=== PATIENT | female | born 1960 | race Caucasian/White ===

== ENCOUNTER → 2019-04-15 11:47 | Outpatient (CLI) | payer OTHER, SELFPAY ==
--- NOTE | 2019-04-15 11:50 | DI.MG.S_ITS ---
BILATERAL DIGITAL SCREENING MAMMOGRAM 3D/2D WITH CAD: 04/15/2019 CLINICAL: Routine screening. Family history of breast cancer. Comparison is made to exams dated: 08/22/2011 mammogram, 07/21/2008 mammogram, 07/11/2008 mammogram, and 03/18/2007 mammogram - [facility]. There are scattered fibroglandular elements in both breasts. Current study was also evaluated with a Computer Aided Detection (CAD) system. No significant masses, calcifications, or other findings are seen in either breast. There has been no significant interval change. IMPRESSION: NEGATIVE There is no mammographic evidence of malignancy. A 1 year screening mammogram is recommended. This exam was interpreted at Station ID: [id number]. NOTE: For mammograms, a report in lay terms will be sent to the patient. Approximately 15% of breast malignancies will not be visualized mammographically. In the management of a palpable breast mass, a negative mammogram must not discourage biopsy of a clinically suspicious lesion. Electronically Signed By: Korey ruiz/didier:04/15/2019 12:54:26 letter sent: Normal Exam ACR BI-RADS Category 1: Negative 3341F
[2019-04-15 12:28] LABS: Hemoglobin A1C% w Est Avg Glu 8.8 % (4.0-6.0)
[2019-04-15 12:38] LABS: BUN Creatinine Ratio 22.5 (6-22); Blood Urea Nitrogen 18 mg/dL (7-17); Calcium 9.6 mg/dL (8.4-10.2); Carbon Dioxide 27 mmol/L (22-32); Chloride 110 mmol/L (98-107); Estimated Glomerular Filt Rate > 60.0 mL/min (>60); Glucose 114 mg/dL (70-100); HEMOLYSIS < 15 (0-50); Potassium 4.8 mmol/L (3.4-5.1); Sodium 144 mmol/L (137-145)
--- NOTE | 2019-04-15 15:10 | DI.RAD.S_ITS ---
PROCEDURE: XR TOE RT MIN 2V INDICATIONS: r/o osteo TECHNIQUE: 3 views of the first toe(s) acquired. COMPARISON: None. FINDINGS: Bones: No fractures or dislocations. No suspicious bony lesions. Soft tissues: No suspicious soft tissue densities. IMPRESSION: No ostial lysis is seen, no trauma is found. Depending on the clinical status followup by contrast enhanced MR scanning may be warranted for more accurate assessment. Dictated by: Jeffrey Cleveland M.D. on 04/15/2019 at 16:09 Approved by: Jeffrey Cleveland M.D. on 04/15/2019 at 16:10
== END ==
PROVIDERS: PCP Nurse Practitioner; Visit Provider Nurse Practitioner
DX: Z12.31 Encounter for screening mammogram for malignant neoplasm of breast (principal); Z80.3 Family history of malignant neoplasm of breast; E10.621 Type 1 diabetes mellitus with foot ulcer; L97.509 Non-pressure chronic ulcer of other part of unspecified foot with unspecified severity; I10 Essential (primary) hypertension; G62.2 Polyneuropathy due to other toxic agents; E66.9 Obesity, unspecified
CPT/HCPCS: 36415; 73660; 77063; 77067; 80048; 83036; 84443; 87070; 87077; 87147; 87186; 87205

== ENCOUNTER → 2019-04-15 15:15 | Outpatient (CLI) | payer OTHER, SELFPAY | PROVIDERS: PCP Nurse Practitioner; Visit Provider Nurse Practitioner | DX: E10.621 Type 1 diabetes mellitus with foot ulcer (principal); L97.509 Non-pressure chronic ulcer of other part of unspecified foot with unspecified severity | CPT/HCPCS: 87070; 87075; 87077; 87147; 87186; 87205 ==

== ENCOUNTER → 2021-08-30 11:16 | Outpatient (CLI) | payer OTHER, MEDICAID, SELFPAY ==
[2021-08-30 12:16] LABS: Add Manual Diff / Slide Review NO; Basophils Absolute Auto 0 /uL (0-100); Basophils Percent Auto 0.1 % (0-2); Eosinophils Absolute Auto 200 /uL (0-450); Eosinophils Percent Auto 1.3 % (2-4); Hematocrit 30.6 % (36-46); Hemoglobin 10.2 g/dL (12.0-16.0); Lymphocytes Absolute Auto 4500 /uL (1100-4500); Lymphocytes Percent Auto 28.6 % (25-40); Mean Corpuscular HGB Conc 33.2 % (30-36); Mean Corpuscular Hemoglobin 30.2 PG (26-34); Mean Corpuscular Volume 90.8 fL (80-100); Monocytes Absolute Auto 1000 /uL (0-900); Monocytes Percent Auto 6.2 % (3-14); Neutrophils Absolute Auto 9900 /uL (1500-7000); Neutrophils Percent Auto 63.8 % (50-75); Platelet Count 687 X10^3/uL (150-400); Red Blood Cell Count 3.37 X10^6/uL (4.0-5.2); Red Cell Distribution Width 15.5 % (11.6-14.8); White Blood Cell Count 15.6 X10^3/uL (4.5-11.0)
[2021-08-30 12:26] LABS: Alanine Aminotransferase 19 IU/L (<35); Alkaline Phosphatase 106 U/L (38-126); Aspartate Aminotransferase 18 IU/L (14-36); BUN Creatinine Ratio 25.3 (6-22); Bilirubin Total 0.3 mg/dL (0.2-1.3); Blood Urea Nitrogen 19 mg/dL (7-17); Calcium 8.8 mg/dL (8.4-10.2); Carbon Dioxide 33 mmol/L (22-32); Chloride 104 mmol/L (98-107); Cholesterol 217 mg/dL (140-199); Estimated Glomerular Filt Rate > 60.0 mL/min (>60); Globulin 2.9 g/dL (1.7-4.1); Glucose 147 mg/dL (80-110); HDL Cholesterol 69 mg/dL (40-60); HEMOLYSIS < 15 (0-50); LDL Cholesterol Calculated 120 mg/dL (<100); Magnesium 1.7 mg/dL (1.6-2.3); Potassium 4.2 mmol/L (3.4-5.1); Sodium 141 mmol/L (137-145); Total Protein 5.9 g/dL (6.3-8.2); Triglycerides 141 mg/dL (35-150)
[2021-08-30 12:43] LABS: Free T3, Triiodothyronine Free 2.97 pg/mL (2.77-5.27); Free T4, Direct Thyroxine 1.14 ng/dL (0.78-2.19)
[2021-08-30 12:56] LABS: Thyroid Stimulating Hormone 4.09 uIU/mL (0.47-4.68)
[2021-08-30 14:37] LABS: Creatinine Urine Random 126.1 mg/dL
[2021-08-30 14:42] LABS: Microalbumi Creatinin Ratio Ur 28.5 ug/mg CR (<30); Microalbumin Urine Random 3.6 mg/dL (0-1.6)
== END ==
PROVIDERS: PCP Nurse Practitioner; Referring Provider Nurse Practitioner; Visit Provider Nurse Practitioner
DX: E78.2 Mixed hyperlipidemia (principal); E10.621 Type 1 diabetes mellitus with foot ulcer; L97.509 Non-pressure chronic ulcer of other part of unspecified foot with unspecified severity; I10 Essential (primary) hypertension; E10.8 Type 1 diabetes mellitus with unspecified complications; F33.41 Major depressive disorder, recurrent, in partial remission; E83.42 Hypomagnesemia; D64.9 Anemia, unspecified
CPT/HCPCS: 36415; 80053; 80061; 82043; 82570; 83036; 83735; 84439; 84443; 84481; 85025

== ENCOUNTER 2024-01-04 11:51 | Emergency (ER) | payer OTHER, MEDICAID, SELFPAY ==
[2024-01-04] VITALS (52 sets, daily range): BP systolic 77–120; BP diastolic 35–49; PULSE 80–200; RESP 15–32; TEMP 33.8–36.9; O2SAT 94–100
[2024-01-04] MEDS: SODIUM CHLORIDE 0.9% 1,000 ML 1000 ML IV ×4 (11:50→14:08)
--- NOTE | 2024-01-04 11:56 | DI.RAD.S_ITS ---
PROCEDURE: XR CHEST 1V INDICATIONS: suspected sepsis TECHNIQUE: One view of the chest was acquired. COMPARISON: None. FINDINGS: Surgical changes and devices: ETT is approximately 2 cm above the toñito. NG tube tip is in the proximal gastric lumen/GE junction below the left hemidiaphragm and can be advanced by 5-10 cm. Left internal jugular central venous catheter tip is in SVC. Lungs and pleura: Mild pulmonary vascular congestion is seen. Subtle patchy airspace opacity is seen in right upper lung field and bilateral perihilar region. No pleural effusions or pneumothorax. Mediastinum: Mediastinal contours appear normal. Heart size is normal. Bones and chest wall: No suspicious bony lesions. Overlying soft tissues appear unremarkable. IMPRESSION: Finding may represent patchy infiltrates versus atelectasis in right upper lobe and bilateral perihilar region. No pleural effusion or pneumothorax. Tube and line positions as above. Dictated by: Paul Telles M.D. on 01/04/2024 at 12:28 Approved by: Paul Telles M.D. on 01/04/2024 at 12:30
[2024-01-04] MEDS: NOREPINEPHRINE BITARTRATE/D5W 4 MG/250 ML PLAST..BAG 25.5 MG IV (11:59)
[2024-01-04] MEDS: ETOMIDATE 2 MG/ML 10 ML VIAL 10 MG IV (12:08)
[2024-01-04] MEDS: ROCURONIUM 50 MG/5 ML INJ 100 MG IV (12:09)
--- NOTE | 2024-01-04 12:14 | ED.GENADULT ---
HPI - General Adult General Chief complaint: Altered Mental Status Stated complaint: Hyperglycemia, hypotension, sick couple days Time Seen by Provider: 01/04/24 11:51 Source: EMS Mode of arrival: EMS History of Present Illness HPI narrative: 63-year-old woman brought in by medics from home. Apparently lives in a home with other friends who knew very little about her. She was minimally responsive, mottled, significantly hypotensive, shallow ineffective breathing. No additional information was available initially. Only IV access was an IO On arrival in the emergency department she was taken to room 2. Fluids through the IO as well as Levophed were continued. Central line was placed in the left internal jugular, right looks like it has had multiple other access points and was not easily visible. Once central line was in additional fluid resuscitation as well as Levophed for pressure control was initiated. Rapid sequence intubation was done with uncomplicated intubation. Patient will be placed on fentanyl drip for sedation as needed. Uncertain etiology for the entire event. Differential is vast. We will begin workup with continued fluid resuscitation, antibiotics and pressors. With her intubation she did have some blood flex coming from her esophagus did not look like active bleeding but clearly concern for bleeding at 1 point during the course of her events that led to this rather dramatic presentation Related Data Home Medications Medication Instructions Recorded Confirmed [INSULIN PUMP] ##0 04/22/13 08/29/21 Bacillus coagulans 10 billion cell cell PO 11/11/18 08/29/21 capsule,delayed release (Probiotic (B. coagulans)) ferrous sulfate 27 mg iron tablet 27 mg PO DAILY 10/31/20 08/29/21 Previous Rx's Medication Instructions Recorded insulin lispro 100 unit/mL See Rx Instructions continuous 04/27/20 subcutaneous solution (Humalog subcutaneous infusion SEE U-100 Insulin) INSTRUCTIONS #90 days duloxetine 30 mg capsule,delayed 30 mg PO BID #180 caps 08/29/21 release (Cymbalta) ferrous sulfate 325 mg (65 mg 325 mg PO DAILY #90 tabs 08/29/21 iron) tablet (Iron (ferrous sulfate)) lisinopril 10 mg tablet 5 mg (1/2 x 10 mg) PO Q DAY #90 08/29/21 tabs omeprazole magnesium 20 mg 20 mg PO BID Acid indigestion #180 08/29/21 tablet,delayed release (Prilosec caps OTC) rosuvastatin 40 mg tablet (Crestor) 40 mg PO DAILY #90 tabs 08/29/21 gabapentin 100 mg capsule See Rx Instructions PO .COMPLEX 09/03/22 #360 caps Allergies Allergy/AdvReac Type Severity Reaction Status Date / Time No Known Drug Allergies Allergy Verified 01/04/24 12:15 Review of Systems Review of Systems ROS Unobtainable: Unobtainable due to medical condition Patient History Medical History Coronary artery disease Hypomagnesemia Tobacco abuse Hyperlipidemia Type 1 diabetes mellitus Non-healing wound Toe amputation status Surgical History History of cataract removal with insertion of prosthetic lens (~2003) History of cataract removal with insertion of prosthetic lens (~1993) History of third molar tooth extraction History of tonsillectomy 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) Family History Brother Age: 69 Alcoholism Father Alcohol abuse Grandfather Alcoholism Heart attack Family/Other Breast cancer Mother Multiple sclerosis Family/Other Heroin abuse Family/Other Heroin abuse Social History Smoking Status: Unknown if ever smoked Smoking Status: Unknown if ever smoked Exam Initial Vital Signs Initial Vital Signs: Vital Signs Temperature 96.9 F L 01/04/24 11:52 Pulse Rate 80 01/04/24 11:52 Respiratory Rate 32 H 01/04/24 11:52 Blood Pressure 77/35 L 01/04/24 11:52 Pulse Oximetry 99 01/04/24 11:52 Oxygen Delivery Method Room Air 01/04/24 11:52 General: Obtunded, mottled, tachypneic HEENT: Dramatically dry mucous membranes, mildly injected sclera with reactive pupils, Neck: No JVD, ultrasound of internal jugular shows significant intravascular dehydration Respiratory: Lungs are clear to auscultation, no wheezing no rales no rhonchi. Ineffective ventilate powers attempts at breathing. Patient is to mottled for realistic oxygen saturation reading Cardiac: Regular rate Abdomen: Soft, no pain behaviors or flinching with deep palpation of her abdomen Skin: Mottled throughout, very cold fingers and toes, no obvious infection or cellulitis appreciated Neurologic: Nonpurposeful movement of all extremities, she did open her eyes once but did not respond to any questioning Extremities: No trauma, poor overall perfusion Psych: Obtunded Procedures Central Line Placement Left IJ: Time of procedure: 12:00 Time Out Performed: Yes Patient Placed on Monitor/Pulse Ox: Yes MD Prep: mask, gown and gloves Central Line Prep: Chlorhexidine scrub and sterile drapes applied Ultrasound Used for Placement: Yes Central Line Lumen Inserted: triple Post Procedure: sutured in place, good blood return, all ports aspirated, flushed, capped and sterile dressing applied Post Procedure X-Ray: tip of catheter in good position (Catheter is in the distal superior IVC) and no pneumothorax seen Additional Comments: Right internal jugular is scarred. Left was more accessible. Intubation Time of Intubation: 12:00 Time out performed: Yes sedative: Etomidate Mg Given: 10 paralytic: Rocuronium Mg Given: 100 Laryngoscope: fiber optic video scope ET Tube Size: 7.5 Tube Secured Depth (cm): 22 Tube Secured Location: teeth Tube Placement Confirmation: Visualized tube passing through cords, Equal breath sounds bilaterally, No breath sounds over epigastrium, Confirmation by capnometry and Chest Xray Patient Tolerated Procedure: Well Course Orders Ordered: ED Orders 01/04/24 11:55 Complete Blood Count AUTO DIFF Stat Comprehensive Metabolic Panel Stat Lactate (Lactic Acid) Stat Lipase Stat PTT Partial Thromboplastin Yasir Stat Procalcitonin Stat Prothrombin Time INR Stat 01/04/24 11:56 XR chest 1V Stat EKG-12 Lead Stat RT Consult Eval and Treat NOW 01/04/24 12:15 Blood Culture Stat 01/04/24 12:40 Arterial Blood Gas Daily 01/04/24 12:47 Ventilator Order 01/04/24 13:25 Trop I [Troponin I] Stat Type and Screen Stat 01/04/24 13:27 Urinalysis and Microscopic Stat 01/04/24 13:55 ABG [Arterial Blood Gas] Stat CMP [Comprehensive Metabolic Panel] Stat Hemoglobin and Hematocrit Stat 01/04/24 14:20 ABG [Arterial Blood Gas] Stat 01/04/24 14:51 XR chest 1V Stat 01/04/24 16:09 Comprehensive Metabolic Panel Stat 01/05/24 13:00 Arterial Blood Gas Daily 01/06/24 13:00 Arterial Blood Gas Daily 01/07/24 13:00 Arterial Blood Gas Daily 01/08/24 13:00 Arterial Blood Gas Daily 01/09/24 13:00 Arterial Blood Gas Daily 01/10/24 13:00 Arterial Blood Gas Daily 01/11/24 13:00 Arterial Blood Gas Daily 01/12/24 13:00 Arterial Blood Gas Daily 01/13/24 13:00 Arterial Blood Gas Daily 01/14/24 13:00 Arterial Blood Gas Daily 01/15/24 13:00 Arterial Blood Gas Daily 01/16/24 13:00 Arterial Blood Gas Daily 01/17/24 13:00 Arterial Blood Gas Daily Chlorhexidine Gluconate (Chlorhexidine Gluconate 15 Ml Cup) 15 ml PO Q6HR ELVIS NOREPINEPHRINE BITARTRATE/D5W (Levophed) 4 mg in 250 mls @ 25.5 mls/hr IV TITRATE ELVIS; Protocol Last Admin: 01/04/24 15:23 Dose: 0.3 mcg/kg/min, 76.5 mls/hr Documented By: Titration: 01/04/24 15:23 Dose: Infused Documented By: Titration: 01/04/24 13:03 Dose: 0.3 mcg/kg/min, 76.5 mls/hr Documented By: Titration: 01/04/24 12:10 Dose: 0.2 mcg/kg/min, 51 mls/hr Documented By: Admin: 01/04/24 11:59 Dose: 0.1 mcg/kg/min, 25.5 mls/hr Documented By: DARRIN Fentanyl 1,000 mcg/ Dextrose 250 mls @ 11.9 mls/hr IV TITRATE ELVIS; Protocol Last Admin: 01/04/24 13:05 Dose: 0.7 mcg/kg/hr, 11.9 mls/hr Documented By: DARRIN Sodium Chloride (Normal Saline 0.9%) 1,000 mls @ 130 mls/hr IV CONT ELVIS Last Admin: 01/04/24 15:19 Dose: Not Given Documented By: BARRY INSULIN DRIP PREMIX (Myxredlin Drip Premix) 100 unit in 100 mls @ 6.8 mls/hr IV TITRATE ELVIS; Protocol Last Admin: 01/04/24 14:56 Dose: 0.1 unit/kg/hr, 6.8 mls/hr Documented By: BARRY Co-signed By: TALIA Sodium Chloride (Normal Saline 0.9%) 1,000 mls @ 250 mls/hr IV CONT ELVIS Last Admin: 01/04/24 15:24 Dose: 250 mls/hr Documented By: BARRY Ondansetron HCl (Ondansetron 4 Mg/2 Ml Inj) 4 mg IV NOW PRN PRN Reason: Nausea And Vomiting Ondansetron HCl (Ondansetron 4 Mg Odt) 4 mg SL NOW PRN PRN Reason: Nausea And Vomiting Discontinued Medications Etomidate (Etomidate 2 Mg/Ml 10 Ml Vial) 10 mg IV NOW ONE Stop: 01/04/24 12:12 Last Admin: 01/04/24 12:08 Dose: 10 mg Documented By: DARRIN Sodium Chloride (Normal Saline 0.9%) 1,000 mls @ 1,000 mls/hr IV BOLUS ONE Stop: 01/04/24 12:55 Last Infusion: 01/04/24 12:20 Dose: Infused Documented By: Admin: 01/04/24 12:00 Dose: 1,000 mls/hr Documented By: DARRIN NOREPINEPHRINE BITARTRATE/D5W (Levophed) 4 mg in 250 mls @ 61.875 mls/hr IV TITRATE ELVIS; Protocol Last Admin: 01/04/24 13:18 Dose: Not Given Documented By: DARRIN Fentanyl 1,000 mcg/ Dextrose 250 mls @ 28.875 mls/hr IV TITRATE ELVIS; Protocol Last Admin: 01/04/24 13:18 Dose: Not Given Documented By: DARRIN Sodium Chloride (Normal Saline 0.9%) 1,000 mls @ 1,000 mls/hr IV BOLUS ONE Stop: 01/04/24 13:22 Last Infusion: 01/04/24 13:17 Dose: Infused Documented By: Infusion: 01/04/24 12:05 Dose: 0 mls/hr Documented By: Admin: 01/04/24 11:50 Dose: 1,000 mls/hr Documented By: DARRIN Calcium Gluconate 4.65 meq/ (Sodium Chloride) 60 mls @ 180 mls/hr IV NOW ONE Stop: 01/04/24 13:04 Last Infusion: 01/04/24 13:17 Dose: Infused Documented By: Admin: 01/04/24 12:47 Dose: 180 mls/hr Documented By: DARRIN Cefepime HCl 2 gm/ Sodium (Chloride) 100 mls @ 200 mls/hr IV NOW ONE Stop: 01/04/24 12:58 Last Infusion: 01/04/24 14:08 Dose: Infused Documented By: Admin: 01/04/24 12:45 Dose: 200 mls/hr Documented By: DARRIN Sodium Chloride (Normal Saline 0.9%) 1,000 mls @ 1,000 mls/hr IV BOLUS ONE Stop: 01/04/24 14:17 Last Infusion: 01/04/24 15:01 Dose: Infused Documented By: Admin: 01/04/24 14:08 Dose: 1,000 mls/hr Documented By: BARRY Sodium Chloride (Normal Saline 0.9%) 1,000 mls @ 1,000 mls/hr IV BOLUS ONE Stop: 01/04/24 13:44 Last Infusion: 01/04/24 13:45 Dose: Infused Documented By: Admin: 01/04/24 12:45 Dose: 1,000 mls/hr Documented By: BARRY Insulin Human Regular (Insulin Regular 100 Unit/Ml 3 Ml Vial) 10 unit IV NOW ONE Stop: 01/04/24 12:32 Last Admin: 01/04/24 12:49 Dose: 10 unit Documented By: DARRIN Co-signed By: BARRY Rocuronium [place] (Rocuronium 50 Mg/5 Ml Inj) 100 mg IV NOW ONE Stop: 01/04/24 12:12 Last Admin: 01/04/24 12:09 Dose: 100 mg Documented By: DARRIN Sodium Bicarbonate (Sodium Bicarb 8.4% Syringe) 100 meq IV NOW ONE Stop: 01/04/24 12:46 Last Admin: 01/04/24 12:42 Dose: 100 meq Documented By: DARRIN Vital Signs Vital signs: Vital Signs - 8 hr 01/04/24 11:52 01/04/24 12:07 01/04/24 12:07 Temperature 96.9 F L Pulse Rate 80 87 Respiratory Rate 32 H 25 H Blood Pressure 77/35 L 102/40 L Pulse Oximetry 99 95 Oxygen Delivery Method Room Air Room Air 01/04/24 12:08 01/04/24 12:08 01/04/24 12:09 Temperature Pulse Rate 89 Respiratory Rate 27 H Blood Pressure 105/47 L 103/44 L Pulse Oximetry 98 Oxygen Delivery Method Room Air 01/04/24 12:09 01/04/24 12:10 01/04/24 12:10 Temperature Pulse Rate 90 92 H Respiratory Rate 16 18 Blood Pressure 95/41 L Pulse Oximetry 100 100 Oxygen Delivery Method Ambu Bag Ambu Bag 01/04/24 12:11 01/04/24 12:11 01/04/24 12:12 Temperature Pulse Rate 95 H Respiratory Rate 18 Blood Pressure 97/46 L 101/46 L Pulse Oximetry 100 Oxygen Delivery Method Mechanical Ventilation 01/04/24 12:12 01/04/24 12:13 01/04/24 12:13 Temperature Pulse Rate 94 H 99 H Respiratory Rate 18 18 Blood Pressure 100/46 L Pulse Oximetry 100 100 Oxygen Delivery Method Mechanical Ventilation Mechanical Ventilation 01/04/24 12:14 01/04/24 12:14 01/04/24 12:15 Temperature Pulse Rate 86 Respiratory Rate 18 Blood Pressure 104/46 L 107/47 L Pulse Oximetry 100 Oxygen Delivery Method Mechanical Ventilation 01/04/24 12:15 01/04/24 12:16 01/04/24 12:16 Temperature Pulse Rate 92 H 90 Respiratory Rate 18 18 Blood Pressure 106/48 L Pulse Oximetry 100 100 Oxygen Delivery Method Mechanical Ventilation Mechanical Ventilation 01/04/24 12:17 01/04/24 12:17 01/04/24 12:18 Temperature Pulse Rate 98 H Respiratory Rate 18 Blood Pressure 101/49 L 120/49 L Pulse Oximetry 100 Oxygen Delivery Method Mechanical Ventilation 01/04/24 12:18 01/04/24 12:19 01/04/24 12:19 Temperature Pulse Rate 200 H 99 H Respiratory Rate 22 18 Blood Pressure 104/46 L Pulse Oximetry 100 100 Oxygen Delivery Method Mechanical Ventilation Mechanical Ventilation 01/04/24 12:20 01/04/24 12:20 01/04/24 12:21 Temperature Pulse Rate 98 H Respiratory Rate 18 Blood Pressure 101/46 L 107/45 L Pulse Oximetry 100 Oxygen Delivery Method Mechanical Ventilation 01/04/24 12:21 01/04/24 12:22 01/04/24 12:22 Temperature Pulse Rate 89 87 Respiratory Rate 18 18 Blood Pressure 105/45 L Pulse Oximetry 100 100 Oxygen Delivery Method Mechanical Ventilation Mechanical Ventilation 01/04/24 12:23 01/04/24 12:23 01/04/24 12:24 Temperature Pulse Rate 99 H Respiratory Rate 18 Blood Pressure 104/48 L 104/48 L Pulse Oximetry 100 Oxygen Delivery Method Mechanical Ventilation 01/04/24 12:24 01/04/24 12:25 01/04/24 12:25 Temperature Pulse Rate 99 H 99 H Respiratory Rate 18 18 Blood Pressure 103/49 L Pulse Oximetry 100 100 Oxygen Delivery Method Mechanical Ventilation Mechanical Ventilation 01/04/24 12:26 01/04/24 12:26 01/04/24 12:27 Temperature Pulse Rate 98 H Respiratory Rate 18 Blood Pressure 113/48 L 112/47 L Pulse Oximetry 100 Oxygen Delivery Method Mechanical Ventilation 01/04/24 12:27 01/04/24 12:28 01/04/24 12:28 Temperature Pulse Rate 95 H 89 Respiratory Rate 18 19 Blood Pressure 106/47 L Pulse Oximetry 100 100 Oxygen Delivery Method Mechanical Ventilation Mechanical Ventilation 01/04/24 12:29 01/04/24 12:29 01/04/24 12:30 Temperature Pulse Rate 91 H Respiratory Rate 18 Blood Pressure 105/47 L 104/48 L Pulse Oximetry 100 Oxygen Delivery Method Mechanical Ventilation 01/04/24 12:30 01/04/24 12:31 01/04/24 12:31 Temperature Pulse Rate 85 87 Respiratory Rate 18 18 Blood Pressure 118/48 L Pulse Oximetry 100 100 Oxygen Delivery Method Mechanical Ventilation Mechanical Ventilation 01/04/24 12:32 01/04/24 12:32 01/04/24 12:33 Temperature Pulse Rate 110 H Respiratory Rate 18 Blood Pressure 115/49 L 113/49 L Pulse Oximetry 100 Oxygen Delivery Method Mechanical Ventilation 01/04/24 12:33 01/04/24 12:34 01/04/24 12:34 Temperature 92.8 F L Pulse Rate 95 H 194 H Respiratory Rate 18 19 Blood Pressure 104/46 L Pulse Oximetry 100 100 Oxygen Delivery Method Mechanical Ventilation Mechanical Ventilation 01/04/24 12:35 01/04/24 12:35 01/04/24 12:36 Temperature 93.0 F L Pulse Rate 97 H Respiratory Rate 19 Blood Pressure 102/47 L 110/46 L Pulse Oximetry 100 Oxygen Delivery Method Mechanical Ventilation 01/04/24 12:36 01/04/24 12:37 01/04/24 12:37 Temperature 93.0 F L 93.0 F L Pulse Rate 97 H 97 H Respiratory Rate 15 18 Blood Pressure 105/47 L Pulse Oximetry 100 100 Oxygen Delivery Method Mechanical Ventilation Mechanical Ventilation 01/04/24 12:38 01/04/24 12:38 01/04/24 12:39 Temperature 93.0 F L 93.0 F L Pulse Rate 97 H 97 H Respiratory Rate 15 18 Blood Pressure 104/47 L Pulse Oximetry 100 100 Oxygen Delivery Method Mechanical Ventilation Mechanical Ventilation 01/04/24 12:39 01/04/24 12:45 01/04/24 12:45 Temperature 93.2 F L Pulse Rate 95 H Respiratory Rate 18 Blood Pressure 106/47 L 102/46 L Pulse Oximetry 100 Oxygen Delivery Method Mechanical Ventilation 01/04/24 13:00 01/04/24 13:00 01/04/24 13:15 Temperature 93.2 F L Pulse Rate 97 H Respiratory Rate 18 Blood Pressure 92/40 L 101/46 L Pulse Oximetry 100 Oxygen Delivery Method Mechanical Ventilation 01/04/24 13:15 01/04/24 13:30 01/04/24 13:30 Temperature 93.4 F L 93.6 F L Pulse Rate 104 H 104 H Respiratory Rate 18 19 Blood Pressure 103/47 L Pulse Oximetry 100 100 Oxygen Delivery Method Mechanical Ventilation Mechanical Ventilation 01/04/24 13:45 01/04/24 13:45 01/04/24 14:00 Temperature 94.1 F L Pulse Rate 104 H Respiratory Rate 18 Blood Pressure 107/49 L 106/49 L Pulse Oximetry 96 Oxygen Delivery Method 01/04/24 14:00 01/04/24 14:15 01/04/24 14:15 Temperature 94.5 F L 94.8 F L Pulse Rate 106 H 108 H Respiratory Rate 18 19 Blood Pressure 105/48 L Pulse Oximetry 96 96 Oxygen Delivery Method 01/04/24 14:30 01/04/24 14:30 01/04/24 14:45 Temperature 95.5 F L Pulse Rate 108 H Respiratory Rate Blood Pressure 111/48 L 110/46 L Pulse Oximetry 96 Oxygen Delivery Method 01/04/24 14:45 01/04/24 15:00 01/04/24 15:00 Temperature 96.1 F L 96.6 F L Pulse Rate 109 H 109 H Respiratory Rate 18 Blood Pressure 102/46 L Pulse Oximetry 96 96 Oxygen Delivery Method 01/04/24 15:15 01/04/24 15:15 01/04/24 15:30 Temperature 97.2 F L Pulse Rate 109 H Respiratory Rate 18 Blood Pressure 108/46 L 100/46 L Pulse Oximetry 95 Oxygen Delivery Method Mechanical Ventilation 01/04/24 15:30 01/04/24 15:45 01/04/24 15:45 Temperature 97.5 F L 97.9 F Pulse Rate 109 H 109 H Respiratory Rate 18 18 Blood Pressure 106/44 L Pulse Oximetry 94 94 Oxygen Delivery Method Mechanical Ventilation 01/04/24 16:00 01/04/24 16:00 01/04/24 16:15 Temperature 98.2 F Pulse Rate 109 H Respiratory Rate 18 Blood Pressure 100/45 L 97/45 L Pulse Oximetry 94 Oxygen Delivery Method 01/04/24 16:15 Temperature 98.4 F Pulse Rate 110 H Respiratory Rate 18 Blood Pressure Pulse Oximetry 94 Oxygen Delivery Method Mechanical Ventilation Medical Decision Making Lab Data 01/04/24 13:55 01/04/24 16:09 Labs: Lab Results 01/04/24 01/04/24 01/04/24 Range/Units 11:55 12:40 13:25 WBC 16.7 H (4.5-11.0) X10^3/uL RBC 2.72 L (4.0-5.2) X10^6/uL Hgb 8.2 L (12.0-16.0) g/dL Hct 32.0 L (36-46) % MCV 117.8 H (80-100) fL MCH 30.3 (26-34) PG MCHC 25.8 L (30-36) % RDW 15.2 H (11.6-14.8) % Plt Count 269 (150-400) X10^3/uL Neut % (Auto) [employer] Lymph % (Auto) [employer] [place] % (Auto) [employer] Operator Eos % (Auto) [employer] Operator Baso % (Auto) [employer] Operator Neut # (Auto) [employer] Operator Lymph # (Auto) [employer] Operator [place] # (Auto) [employer] Operator Eos # (Auto) [employer] Operator Baso # (Auto) [employer] Operator Total Counted 100 Seg Neutrophils % 80.0 H (38-70) % Band Neutrophils % 5.0 (3-7) % Lymphocytes % (Manual) 10.0 L (25-45) % Monocytes % (Manual) 5.0 (2-11) % Neutrophils # (Manual) 80084 H (2786-4253) /uL Nucleated RBCs 1 H ( - 0) #/Diff Platelet Estimate Adequate on smear RBC Morphology See below Poikilocytosis 1+ H Anisocytosis 2+ H Macrocytosis 2+ H PT 11.3 (9.4-12.5) SECONDS INR 1.0 (0.9-1.3) APTT 25 L (25.1-36.5) SECONDS ABG Sample Site Right brachial ABG pH 6.80 L* (7.35-7.45) ABG pCO2 28.5 L (35-45) mmHg ABG pO2 134 H (80-100) mmHg ABG HCO3 4 L (23-27) mmol/L ABG Total CO2 5 L (23-27) mmol/L ABG O2 Saturation 94 L (95-100) % ABG Base Excess < -30.0 L (-2-3) mmol/L FiO2 40 Sodium 133 L (137-145) mmol/L Potassium 7.1 H* (3.4-5.1) mmol/L Chloride 103 (98-107) mmol/L Carbon Dioxide < 5 L* (22-32) mmol/L BUN 41 H (7-17) mg/dL Creatinine 2.49 H (0.52-1.04) mg/dL Estimated GFR 21 L (>60) mL/min BUN/Creatinine Ratio 16.5 (6-22) Glucose > 1250 H* (80-110) mg/dL Lactate 7.3 H* (0.7-2.1) mmol/L Calcium 7.4 L (8.4-10.2) mg/dL Total Bilirubin 0.3 (0.2-1.3) mg/dL AST 21 (14-36) IU/L ALT 20 (<35) IU/L Alkaline Phosphatase 86 (38-126) U/L Troponin I < 0.012 (0.01-0.034) ng/mL Total Protein 5.0 L (6.3-8.2) g/dL Albumin 2.9 L (3.5-5.0) g/dL Globulin 2.1 (1.7-4.1) g/dL Albumin/Globulin Ratio 1.4 (1.0-2.8) Lipase 19 L (23-300) U/L Procalcitonin 14.2 H (<0.5) ng/mL Urine Color Urine Appearance Urine pH (4.5-8.0) Ur Specific [place] (1.000-1.035) Urine Protein (Negative) Urine Glucose (UA) (Negative) g/dL Urine Ketones (NEGATIVE) Urine Occult Blood (Negative) Urine Nitrate (Negative) Urine Bilirubin (NEGATIVE) Urine Urobilinogen (0.2) E.U./dL Ur Leukocyte Esterase (NEGATIVE) Urine RBC (0-5/HPF) Urine WBC (0-5/HPF) Ur Squamous Epith Cells (0-5/HPF) Urine Bacteria (None) Ur Culture Indicated? Vol Urine Centrifuged Blood Type A Negative Antibody Screen Negative 01/04/24 01/04/24 01/04/24 Range/Units 13:27 13:55 14:20 WBC (4.5-11.0) X10^3/uL RBC (4.0-5.2) X10^6/uL Hgb 8.6 L (12.0-16.0) g/dL Hct 30.7 L (36-46) % MCV (80-100) fL MCH (26-34) PG MCHC (30-36) % RDW (11.6-14.8) % Plt Count (150-400) X10^3/uL Neut % (Auto) Lymph % (Auto) [place] % (Auto) Eos % (Auto) Baso % (Auto) Neut # (Auto) Lymph # (Auto) [place] # (Auto) Eos # (Auto) Baso # (Auto) Total Counted Seg Neutrophils % (38-70) % Band Neutrophils % (3-7) % Lymphocytes % (Manual) (25-45) % Monocytes % (Manual) (2-11) % Neutrophils # (Manual) (7014-9103) /uL Nucleated RBCs ( - 0) #/Diff Platelet Estimate RBC Morphology Poikilocytosis Anisocytosis Macrocytosis PT (9.4-12.5) SECONDS INR (0.9-1.3) APTT (25.1-36.5) SECONDS ABG Sample Site Right brachial ABG pH 6.87 L* (7.35-7.45) ABG pCO2 38.3 (35-45) mmHg ABG pO2 92 (80-100) mmHg ABG HCO3 7 L (23-27) mmol/L ABG Total CO2 8 L (23-27) mmol/L ABG O2 Saturation 88 L (95-100) % ABG Base Excess -26.0 L (-2-3) mmol/L FiO2 30 Sodium 138 (137-145) mmol/L Potassium 5.8 H D (3.4-5.1) mmol/L Chloride 108 H (98-107) mmol/L Carbon Dioxide < 5 L* (22-32) mmol/L BUN 40 H (7-17) mg/dL Creatinine 2.28 H (0.52-1.04) mg/dL Estimated GFR 24 L (>60) mL/min BUN/Creatinine Ratio 17.5 (6-22) Glucose 1082 H* (80-110) mg/dL Lactate 7.1 H* (0.7-2.1) mmol/L Calcium 7.3 L (8.4-10.2) mg/dL Total Bilirubin 0.3 (0.2-1.3) mg/dL AST 72 H (14-36) IU/L ALT 37 H (<35) IU/L Alkaline Phosphatase 98 (38-126) U/L Troponin I (0.01-0.034) ng/mL Total Protein 5.2 L (6.3-8.2) g/dL Albumin 3.0 L (3.5-5.0) g/dL Globulin 2.2 (1.7-4.1) g/dL Albumin/Globulin Ratio 1.4 (1.0-2.8) Lipase (23-300) U/L Procalcitonin (<0.5) ng/mL Urine Color Yellow Urine Appearance Sl cloudy Urine pH 5.5 (4.5-8.0) Ur Specific [place] 1.015 (1.000-1.035) Urine Protein Trace H (Negative) Urine Glucose (UA) 3+ H (Negative) g/dL Urine Ketones 1+ H (NEGATIVE) Urine Occult Blood 1+ H (Negative) Urine Nitrate Negative (Negative) Urine Bilirubin Negative (NEGATIVE) Urine Urobilinogen 0.2 (0.2) E.U./dL Ur Leukocyte Esterase Negative (NEGATIVE) Urine RBC 0-1/hpf (0-5/HPF) Urine WBC None seen (0-5/HPF) Ur Squamous Epith Cells None seen (0-5/HPF) Urine Bacteria None seen (None) Ur Culture Indicated? Cult not indicated Vol Urine Centrifuged 10ml (spun) Blood Type Antibody Screen 01/04/24 Range/Units 16:09 WBC (4.5-11.0) X10^3/uL RBC (4.0-5.2) X10^6/uL Hgb (12.0-16.0) g/dL Hct (36-46) % MCV (80-100) fL MCH (26-34) PG MCHC (30-36) % RDW (11.6-14.8) % Plt Count (150-400) X10^3/uL Neut % (Auto) Lymph % (Auto) [place] % (Auto) Eos % (Auto) Baso % (Auto) Neut # (Auto) Lymph # (Auto) [place] # (Auto) Eos # (Auto) Baso # (Auto) Total Counted Seg Neutrophils % (38-70) % Band Neutrophils % (3-7) % Lymphocytes % (Manual) (25-45) % Monocytes % (Manual) (2-11) % Neutrophils # (Manual) (8176-6274) /uL Nucleated RBCs ( - 0) #/Diff Platelet Estimate RBC Morphology Poikilocytosis Anisocytosis Macrocytosis PT (9.4-12.5) SECONDS INR (0.9-1.3) APTT (25.1-36.5) SECONDS ABG Sample Site ABG pH (7.35-7.45) ABG pCO2 (35-45) mmHg ABG pO2 (80-100) mmHg ABG HCO3 (23-27) mmol/L ABG Total CO2 (23-27) mmol/L ABG O2 Saturation (95-100) % ABG Base Excess (-2-3) mmol/L FiO2 Sodium 139 (137-145) mmol/L Potassium 5.3 H (3.4-5.1) mmol/L Chloride 110 H (98-107) mmol/L Carbon Dioxide (22-32) mmol/L BUN 40 H (7-17) mg/dL Creatinine 2.22 H (0.52-1.04) mg/dL Estimated GFR 24 L (>60) mL/min BUN/Creatinine Ratio 18.0 (6-22) Glucose (80-110) mg/dL Lactate (0.7-2.1) mmol/L Calcium 7.3 L (8.4-10.2) mg/dL Total Bilirubin 0.3 (0.2-1.3) mg/dL AST 89 H (14-36) IU/L ALT 39 H (<35) IU/L Alkaline Phosphatase 88 (38-126) U/L Troponin I (0.01-0.034) ng/mL Total Protein 5.4 L (6.3-8.2) g/dL Albumin 3.1 L (3.5-5.0) g/dL Globulin 2.3 (1.7-4.1) g/dL Albumin/Globulin Ratio 1.3 (1.0-2.8) Lipase (23-300) U/L Procalcitonin (<0.5) ng/mL Urine Color Urine Appearance Urine pH (4.5-8.0) Ur Specific [place] (1.000-1.035) Urine Protein (Negative) Urine Glucose (UA) (Negative) g/dL Urine Ketones (NEGATIVE) Urine Occult Blood (Negative) Urine Nitrate (Negative) Urine Bilirubin (NEGATIVE) Urine Urobilinogen (0.2) E.U./dL Ur Leukocyte Esterase (NEGATIVE) Urine RBC (0-5/HPF) Urine WBC (0-5/HPF) Ur Squamous Epith Cells (0-5/HPF) Urine Bacteria (None) Ur Culture Indicated? Vol Urine Centrifuged Blood Type Antibody Screen Point of Care Testing Glucose POC 500 Point of care testing: Point of Care Testing Glucose POC 500 MDM Narrative Medical decision making narrative: CC: Obtunded, hypotensive, ineffective breathing, minimal perfusion please see HPI above Complicating co-morbidities: Once initial resuscitation is started, we do have access to additional information. She is a type 1 diabetic, does have coronary artery disease which was evident with the median sternotomy scar appreciated. Hypertension, hyperlipidemia Data collected from: Old records, Social determinants of health that may influence the patients condition: Living situation with poor medical and social support Medical records reviewed: Notes from [facility] are reviewed it looks like most recent interactions were in May of 2023, Differential considered: Sepsis, massive GI bleeding, cardiac arrest, DKA, stroke. On arrival differential is vast Exam documented above, pertinent findings include: Acutely ill, obtunded, mottled throughout, flecks of blood around her mouth, ineffective ventilation with breathing effort. Lab Test results independently reviewed as above. Pertinent findings: CBC shows a white count of 16.7 with acute anemia at 8.2 and 32.0. Comparison CBC from June 08, 2023 shows hemoglobin at 12.1 and hematocrit at 37.0 Coagulation studies are unremarkable ABG that is confirmed arterial has a pH of 7.8, CO2 of 28.5, O2 of 134, bicarb of 4 total CO2 of 5, 40% oxygen Chemistries have marked abnormalities. Potassium is 7.1, bicarb, calcium gluconate given has already received fluids, 10 units of insulin given IV Creatinine elevated 2.5 Blood sugar is greater than 1250 which is the highest our analyses can evaluate Calcium is low at 7.4 Liver studies are reassuring Lactic acid is elevated at 7.3 Lipase is low at 19 Procalcitonin is elevated at 14.2 no obvious source of infection but antibiotics are initiated Initial troponin is undetectable Repeat labs 2 hours are showing only minimal change. Lactic acid has gone from 7.3 to 7.1 Hemoglobin is actually slightly improved from 8.2-8.6 She is beginning to make slightly more urine. Urine does not look like it is infected Glucose has come down to 1082 Creatinine has come down to 2.8 Potassium has come from 7.125.8 Independently reviewed EKG: Sinus tachycardia at a rate of 96. Peaked T-waves, prolonged QTC at 5:12 a.m., QRS at 114 milliseconds, nonspecific STT wave changes without criteria for STEMI Imaging studies independently reviewed: Consultations: Discussed with Dr. Zepeda, hospitalist. At this point with what seemed like reducible factors in severe DKA we will continue resuscitation in the emergency department and further evaluation. We will if beds are available for transfer. Will rediscuss with Dr. Zepeda if transfer is not going to be possible in a timely fashion Discussed with blow molder, Dr. Oconnell at [facility]. He accepts the patient. We will wait for bed availability. Agrees with starting insulin drip, after the 4 L initially given fluid was continuing to 50 an hour of saline. Continue with additional current medications and drips as we would discussed Re-evaluations:1pm patient is re-evaluated. She is currently being treated for her acute hyperkalemia. Additional fluids going and she is beginning to make urine, urine will be sent for culture. She has a acute kidney injury but does not appear to be in acute renal failure. Concern for upper GI bleed with acute blood loss anemia. Cefepime has been initiated, she continues on Levophed. We will begin looking for bed availability for ICU admission Discussion: 63-year-old woman initially coming in his a Munira Barbour in extremis, initial workup started revealing dramatic DKA with hyperkalemia, significantly elevated lactic acid uncertain if she also has an infection but antibiotics have been initiated. At this point I do not have any localizing infectious source. I have not imaged her belly but she did not have pain behaviors with deep palpation on arrival. She remains intubated with fentanyl drip for sedation, fluids running, is beginning to make small amounts of urine, potassium has been corrected, she has on an insulin drip, she is on pressors, antibiotics have been given has spoken with blow molder at [facility] who will accept the patient. As soon as bed is available we will arrange for ALS transport. She remains you critical condition Critical Care Time Critical Care Time Critical Care Time: Yes Total Critical Care Time: 67 Attestation: Critical care time is separate from other billable procedures. There is a high probability of a significant, sudden or life-threatening deterioration that requires my full and direct attention, intervention and personal management. This critical care time includes consultation with family and other consulting doctors, review of records, and interpretation of data from labs, EKGs and imaging as well as managements of severe DKA with coma, hypovolemic shock, multiple organ system failure and electrolyte abnormalities Discharge Plan Departure Patient Disposition: [facility] Clinical Impression: ABLA (acute blood loss anemia), Acute kidney injury, Severe sepsis with lactic acidosis, Hypovolemic shock, Obtunded, Acute hyperkalemia DKA, type 1 Qualifiers: Diabetes mellitus complication detail: with coma Qualified Code(s): E10.11 - Type 1 diabetes mellitus with ketoacidosis with coma Prescriptions: No Action [INSULIN PUMP] Qty: 0 insulin lispro [Humalog U-100 Insulin] 100 unit/mL solution See Rx Instructions Continuous Subcutaneous Infusion SEE INSTRUCTIONS Qty: 90 1RF Dose Instruction: use as directed via insulin pump (80-100U daily) Continuous Subcutaneous Infusion SEE INSTRUCTIONS; Rx Instructions: use as directed via insulin pump (80-100U daily) Continuous Subcutaneous Infusion SEE INSTRUCTIONS; gabapentin 100 mg capsule See Rx Instructions PO .COMPLEX Qty: 360 0RF Rx Instructions: Take 100mg in am and at bedtime, 200mg in the afternoon. Due for lab and appointment prior to additional refills. Call PCP to schedule. Probiotic (B. coagulans) 10 billion cell capsule,delayed release(DR/EC) PO duloxetine [Cymbalta] 30 mg capsule,delayed release(DR/EC) 30 mg PO BID Qty: 180 3RF lisinopril 10 mg tablet 5 mg PO Q DAY Qty: 90 3RF Rx Instructions: Take 1/2 tab (5mg) daily for hypertension, goal 100-130/50-80 Prilosec OTC 20 mg tablet,delayed release (DR/EC) 20 mg PO BID Qty: 180 3RF Rx Instructions: Take 2 daily, either split into two doses, or just one dose. rosuvastatin [Crestor] 40 mg tablet 40 mg PO DAILY Qty: 90 3RF Rx Instructions: Take 1 tablet daily for elevated cholesterol. ferrous sulfate [Iron (ferrous sulfate)] 325 mg (65 mg iron) tablet 325 mg PO DAILY Qty: 90 3RF Rx Instructions: Take 1 tab daily for anemia of chronic disease, iron def. anemia. ferrous sulfate 27 mg iron tablet 27 mg PO DAILY
[2024-01-04 12:18] LABS: Prothrombin Time 11.3 SECONDS (9.4-12.5)
[2024-01-04 12:20] LABS: PTT Partial Thromboplastin Tim 25 SECONDS (25.1-36.5)
[2024-01-04 12:25] LABS: Alanine Aminotransferase 20 IU/L (<35); Albumin 2.9 g/dL (3.5-5.0); Albumin Globulin Ratio 1.4 (1.0-2.8); Alkaline Phosphatase 86 U/L (38-126); Aspartate Aminotransferase 21 IU/L (14-36); BUN Creatinine Ratio 16.5 (6-22); Bilirubin Total 0.3 mg/dL (0.2-1.3); Blood Urea Nitrogen 41 mg/dL (7-17); Calcium 7.4 mg/dL (8.4-10.2); Chloride 103 mmol/L (98-107); Estimated Glomerular Filt Rate 21 mL/min (>60); Globulin 2.1 g/dL (1.7-4.1); HEMOLYSIS 16 (0-50); Lipase 19 U/L (23-300); Sodium 133 mmol/L (137-145)
[2024-01-04 12:26] LABS: Lactate (Lactic Acid) 7.3 mmol/L (0.7-2.1)
[2024-01-04 12:27] LABS: Hemoglobin 8.2 g/dL (12.0-16.0)
[2024-01-04 12:28] LABS: Carbon Dioxide < 5 mmol/L (22-32); Potassium 7.1 mmol/L (3.4-5.1)
[2024-01-04 12:33] LABS: Add Manual Diff / Slide Review YES; Mean Corpuscular Volume 117.8 fL (80-100); Red Blood Cell Count 2.72 X10^6/uL (4.0-5.2); White Blood Cell Count 16.7 X10^3/uL (4.5-11.0)
[2024-01-04 12:34] LABS: Mean Corpuscular HGB Conc 25.8 % (30-36); Mean Corpuscular Hemoglobin 30.3 PG (26-34); Platelet Count 269 X10^3/uL (150-400); Red Cell Distribution Width 15.2 % (11.6-14.8)
[2024-01-04 12:40] LABS: Glucose > 1250 mg/dL (80-110); Procalcitonin 14.2 ng/mL (<0.5)
[2024-01-04] MEDS: SODIUM BICARB 8.4% SYRINGE 100 MEQ IV (12:42)
[2024-01-04] MEDS: CEFEPIME 2 GM in SODIUM CHLORIDE 0.9% 100 ML IV (12:45)
[2024-01-04] MEDS: CALCIUM GLUCONATE 4.65 MEQ in SODIUM CHLORIDE 0.9% 50 ML 180 MEQ IV (12:47)
[2024-01-04] MEDS: INSULIN REGULAR 100 UNIT/ML 3 ML VIAL 10 UNIT IV (12:49)
[2024-01-04 12:54] LABS: Base Excess ABG < -30.0 mmol/L (-2-3); HCO3 ABG 4 mmol/L (23-27); PCO2 ABG 28.5 mmHg (35-45); PO2 ABG 134 mmHg (80-100); TCO2 ABG 5 mmol/L (23-27)
[2024-01-04 12:55] LABS: Blood Gas Collection Site Right Brachial; Fractionated Inspired Oxygen 40; Oxygen Saturation ABG 94 % (95-100)
[2024-01-04 12:59] LABS: Neutrophils Absolute Manual 14195 /uL (3000-5900); Nucleated Red Blood Cells 1 #/Diff; Total Cells Counted 100
[2024-01-04 13:02] LABS: Anisocytosis 2+; Macrocytosis 2+; Platelet Estimate Adequate on smear; Poikilocytosis 1+
[2024-01-04] MEDS: fentaNYL 1,000 MCG in DEXTROSE 5% IN WATER 230 ML 11.9 MCG IV (13:05)
--- NOTE | 2024-01-04 13:06 | PC.NURSE ---
[address] Sherman, + color change on CO2 detector, breath sounds equal bilaterally. Chest xray confirms placement. ET tube secured by RT baez at 22 at teeth.
--- NOTE | 2024-01-04 13:20 | PC.NURSE ---
1208, pads placed on patient and prepped for intubation.
--- NOTE | 2024-01-04 13:22 | PC.NURSE ---
1150, Eliud Orr with RT, RN's Shane; Marisel; Liza; and this EDRN, STATISTICAL SECRETARY Veronica, Student Kate at bedside. Patient to receive central line and intubation.
[2024-01-04 13:36] LABS: Appearance Urine UA SL CLOUDY; Bilirubin Urine UA NEGATIVE (NEGATIVE); Color Urine UA YELLOW; Glucose Urine UA 3+ g/dL (Negative); Ketones Urine UA 1+ (NEGATIVE); Leukocyte Esterase Urine UA NEGATIVE (NEGATIVE); Nitrite Urine UA NEGATIVE (Negative); Occult Blood Urine UA 1+ (Negative); Protein Urine UA TRACE (Negative); Specific Gravity Urine UA 1.015 (1.000-1.035); Urobilinogen Urine UA 0.2 E.U./dL (0.2)
[2024-01-04 13:40] LABS: pH Urine UA 5.5 (4.5-8.0)
[2024-01-04 13:41] LABS: Reflexed Lactate in 2 Hours Y
[2024-01-04 13:44] LABS: Bacteria Urine None Seen; RBC Urine 0-1/HPF (0-5/HPF); Squamous Epithelial Cell Urine None Seen (0-5/HPF); Urine Volume 10mL (spun); WBC Urine None Seen (0-5/HPF)
[2024-01-04 13:45] LABS: Culture Indicated Urine Cult Not Indicated
[2024-01-04 14:00] LABS: Troponin I < 0.012 ng/mL (0.01-0.034)
[2024-01-04 14:00] LABS: Hematocrit 30.7 % (36-46); Hemoglobin 8.6 g/dL (12.0-16.0)
[2024-01-04 14:12] LABS: Alanine Aminotransferase 37 IU/L (<35); Albumin Globulin Ratio 1.4 (1.0-2.8); Alkaline Phosphatase 98 U/L (38-126); Aspartate Aminotransferase 72 IU/L (14-36); BUN Creatinine Ratio 17.5 (6-22); Bilirubin Total 0.3 mg/dL (0.2-1.3); Blood Urea Nitrogen 40 mg/dL (7-17); Calcium 7.3 mg/dL (8.4-10.2); Chloride 108 mmol/L (98-107); Estimated Glomerular Filt Rate 24 mL/min (>60); Globulin 2.2 g/dL (1.7-4.1); HEMOLYSIS < 15 (0-50); Sodium 138 mmol/L (137-145); Total Protein 5.2 g/dL (6.3-8.2)
[2024-01-04 14:13] LABS: Potassium 5.8 mmol/L (3.4-5.1)
[2024-01-04 14:20] LABS: Carbon Dioxide < 5 mmol/L (22-32); Glucose 1082 mg/dL (80-110)
[2024-01-04 14:21] LABS: Lactate 2HR (Lactic Acid Rflx) 7.1 mmol/L (0.7-2.1)
--- NOTE | 2024-01-04 14:51 | DI.RAD.S_ITS ---
PROCEDURE: XR CHEST 1V INDICATIONS: repositioned OG, check for placement TECHNIQUE: One view of the chest was acquired. COMPARISON: [facility], , XR CHEST 1V, 01/04/2024, 12:12. FINDINGS: Surgical changes and devices: OG tube tip is now below the left hemidiaphragm and is in the expected location of stomach lumen. Median sternotomy wires are again seen. Lungs and pleura: The included bilateral lung coronado are clear. No pleural effusion or pneumothorax. Mediastinum: Mediastinal contours appear normal. Heart size is normal. Bones and chest wall: No suspicious bony lesions. Overlying soft tissues appear unremarkable. IMPRESSION: OG tube tip is in the expected location of stomach lumen below the left hemidiaphragm. Dictated by: Paul Telles M.D. on 01/04/2024 at 15:42 Approved by: Paul Telles M.D. on 01/04/2024 at 15:42
[2024-01-04] MEDS: INSULIN DRIP PREMIX 100 UNIT/100 ML PLAST..BAG 6.8 UNIT IV (14:56)
--- NOTE | 2024-01-04 15:07 | PC.NURSE ---
While performing oral hygiene found the OG tube kinked and coiled in the mouth. Unkinked line, reinserted, ausculated for placement, and secured. New xray ordered for confirmation of placement.
[2024-01-04] MEDS: NOREPINEPHRINE BITARTRATE/D5W 4 MG/250 ML PLAST..BAG 76.5 MG IV (15:23)
[2024-01-04] MEDS: SODIUM CHLORIDE 0.9% 1,000 ML 250 ML IV (15:24)
[2024-01-04 15:27] LABS: Fractionated Inspired Oxygen 30; HCO3 ABG 7 mmol/L (23-27); Oxygen Saturation ABG 88 % (95-100); PCO2 ABG 38.3 mmHg (35-45); PO2 ABG 92 mmHg (80-100); TCO2 ABG 8 mmol/L (23-27)
[2024-01-04 15:28] LABS: Allen Test for ABG Passed? Yes, Passed; Blood Gas Collection Site Right Brachial; pH ABG 6.87 (7.35-7.45)
--- NOTE | 2024-01-04 15:28 | PC.NURSE ---
Patients temp currently 97.5F, core, turned of radiant warmer and gilberto hugger. Patient remains covered in blankets.
[2024-01-04 16:32] LABS: Alanine Aminotransferase 39 IU/L (<35); Albumin 3.1 g/dL (3.5-5.0); Albumin Globulin Ratio 1.3 (1.0-2.8); Alkaline Phosphatase 88 U/L (38-126); Aspartate Aminotransferase 89 IU/L (14-36); Bilirubin Total 0.3 mg/dL (0.2-1.3); Blood Urea Nitrogen 40 mg/dL (7-17); Calcium 7.3 mg/dL (8.4-10.2); Chloride 110 mmol/L (98-107); Estimated Glomerular Filt Rate 24 mL/min (>60); Globulin 2.3 g/dL (1.7-4.1); HEMOLYSIS < 15 (0-50); Potassium 5.3 mmol/L (3.4-5.1); Sodium 139 mmol/L (137-145); Total Protein 5.4 g/dL (6.3-8.2)
[2024-01-04 16:40] LABS: Carbon Dioxide 7 mmol/L (22-32)
[2024-01-04 16:41] LABS: Glucose 880 mg/dL (80-110)
--- NOTE | 2024-01-04 18:03 | PC.NURSE ---
Patient left with fentanyl, levophed, normal saline, and insulin infusing.
== END 2024-01-04 15:47 | disposition short-term general hospital (02) ==
PROVIDERS: Emergency Provider Emergency Medicine
DX: E10.11 Type 1 diabetes mellitus with ketoacidosis with coma (principal); R65.20 Severe sepsis without septic shock; N17.9 Acute kidney failure, unspecified; R57.1 Hypovolemic shock; E87.5 Hyperkalemia; D62 Acute posthemorrhagic anemia; R40.1 Stupor
CPT/HCPCS: 31500; 36415; 36569; 36600; 71045; 80053; 81001; 82805; 82962; 83605; 83690; 84145; 84484; 85007; 85014; 85018; 85025; 85610; 85730; 86850; 86900; 86901; 87040; 87077; 87186; 93005; 94799; 96365; 96366; 96368; 96375; 99285; 99291; 99292; J0612; J0692; J3010

== ENCOUNTER → 2025-01-11 09:27 | Outpatient (ROUT) | payer MEDICAID, SELFPAY ==
[2024-01-04 15:55] VITALS: PULSE 110; RESP 19; O2SAT 95
[2025-01-11 09:51] LABS: Hematocrit 32.6 % (36-46); Hemoglobin 11.2 g/dL (12.0-16.0); Mean Corpuscular HGB Conc 34.3 % (30-36); Mean Corpuscular Hemoglobin 29.8 PG (26-34); Mean Corpuscular Volume 86.7 fL (80-100); Platelet Count 261 X10^3/uL (150-400); Red Blood Cell Count 3.76 X10^6/uL (4.0-5.2); White Blood Cell Count 7.5 X10^3/uL (4.5-11.0)
[2025-01-11 10:06] LABS: Hemoglobin A1C% w Est Avg Glu 7.5 % (4.0-6.0)
[2025-01-11 10:19] LABS: BUN Creatinine Ratio 22.9 (6-22); Blood Urea Nitrogen 19 mg/dL (7-17); Calcium 9.5 mg/dL (8.4-10.2); Carbon Dioxide 24 mmol/L (22-32); Chloride 110 mmol/L (98-107); Cholesterol 143 mg/dL (140-199); Estimated Glomerular Filt Rate > 60 mL/min (>60); Glucose 46 mg/dL (70-99); HDL Cholesterol 48 mg/dL (40-60); HEMOLYSIS < 15 (0-50); LDL Cholesterol Calculated 82 mg/dL (<100); Potassium 4.3 mmol/L (3.4-5.1); Sodium 140 mmol/L (137-145); Triglycerides 67 mg/dL (35-150)
== END ==
LOC: LAB 09:27
PROVIDERS: Visit Provider Registered Nurse
DX: E10.9 Type 1 diabetes mellitus without complications (principal); I10 Essential (primary) hypertension; E78.5 Hyperlipidemia, unspecified
CPT/HCPCS: 36415; 80048; 80061; 83036; 85027

== ENCOUNTER 2025-01-18 13:39 | Inpatient (IN) | payer OTHER, SELFPAY ==
[2024-01-04 15:55] VITALS: PULSE 110; RESP 19; O2SAT 95
[2025-01-18 13:42] VITALS: BP 129/60; PULSE 60; RESP 14; TEMP 36.1; O2SAT 100; BMI 28.3
--- NOTE | 2025-01-18 15:42 | ED_ITS ---
HPI - Wound/Laceration <Flores Abraham PA-C - Last Filed: 01/18/25 20:12> General Chief Complaint: Wound/Laceration Stated Complaint: Ulcer on L heel Time Seen by Provider: 01/18/25 15:42 Source: patient and EMS Mode of arrival: EMS History of Present Illness HPI narrative: Ms. San is a pleasant 64-year-old female with a past medical history of CAD s/p CABG, type 1 diabetes, chronic left heel wound who presents to the emergency department via EMS from [facility] for left heel wound, concerned for infection. Patient also notes her left great toe became very red and swollen today. Patient states she has had a wound on her left heel for many months, she was getting weekly wound care however she moved to a new assisted living facility 1 month ago and they do not have wound care. The doctor was supposed to see her and evaluate her heel wound today however they were unable to see her so EMS was called bring her to the emergency department for evaluation. She had her left 2nd toe amputated many years ago because of infection. She has been living at a nursing facility for about the last 1-2 years after having a heart attack. She primarily gets around in a wheel chair. She denies fevers, chills, nausea, vomiting, chest pain, shortness of breath or any other concerns. She does have peripheral neuropathy of both her feet. Related Data Home Medications Medication Instructions Recorded Confirmed [INSULIN PUMP] ##0 04/22/13 08/29/21 Bacillus coagulans 10 billion cell cell PO 11/11/18 08/29/21 capsule,delayed release (Probiotic (B. coagulans)) ferrous sulfate 27 mg iron tablet 27 mg PO DAILY 10/31/20 08/29/21 Previous Rx's Medication Instructions Recorded insulin lispro 100 unit/mL See Rx Instructions continuous 04/27/20 subcutaneous solution (Humalog subcutaneous infusion SEE U-100 Insulin) INSTRUCTIONS #90 days duloxetine 30 mg capsule,delayed 30 mg PO BID #180 caps 08/29/21 release (Cymbalta) ferrous sulfate 325 mg (65 mg 325 mg PO DAILY #90 tabs 08/29/21 iron) tablet (Iron (ferrous sulfate)) lisinopril 10 mg tablet 5 mg (1/2 x 10 mg) PO Q DAY #90 08/29/21 tabs omeprazole magnesium 20 mg 20 mg PO BID Acid indigestion #180 08/29/21 tablet,delayed release (Prilosec caps OTC) rosuvastatin 40 mg tablet (Crestor) 40 mg PO DAILY #90 tabs 08/29/21 gabapentin 100 mg capsule See Rx Instructions PO .COMPLEX 09/03/22 #360 caps Allergies Allergy/AdvReac Type Severity Reaction Status Date / Time No Known Drug Allergies Allergy Verified 01/18/25 13:47 Review of Systems <Flores Abraham PA-C - Last Filed: 01/18/25 20:12> Review of Systems ROS Unobtainable: All systems reviewed & are unremarkable except as noted in HPI and below Patient History <Flores Abraham PA-C - Last Filed: 01/18/25 20:12> Medical History Coronary artery disease Hypomagnesemia Tobacco abuse Hyperlipidemia Type 1 diabetes mellitus Non-healing wound Toe amputation status Surgical History History of cataract removal with insertion of prosthetic lens (~2003) History of cataract removal with insertion of prosthetic lens (~1993) History of third molar tooth extraction History of tonsillectomy 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) Family History Brother Age: 70 Alcoholism Father Alcohol abuse Grandfather Alcoholism Heart attack Family/Other Breast cancer Mother Multiple sclerosis Family/Other Heroin abuse Family/Other Heroin abuse Social History household members: caregiver Smoking Status: Current every day smoker alcohol intake: former Smoking Status: Current every day smoker Exam <Flores Abraham PA-C - Last Filed: 01/18/25 20:12> Narrative Exam Narrative: GENERAL: 64 year old patient appears stated age. Elderly patient in no acute distress. HEAD: Atraumatic. Normocephalic. EYES: Extraocular motions intact. No scleral icterus. No injection or drainage. NECK: Trachea midline. Cervical ROM intact. CARDIOVASCULAR: Regular rate and rhythm. RESPIRATORY: ?Nonlabored respirations. ?Speaking in clear, full sentences. ?Clear to auscultation. EXTREMITIES: Prior amputated left 2nd toe. Erythema and edema of distal great left toe. Chronic appearing wound of left heel, about 2.5 cm round, no deep structures visualized, no purulent drainage, there is surrounding erythema. Onychomycosis of all toenails. Mild edema of left foot. Palpable DP and PT pulses. NEURO: Alert and oriented, able to provide her own clear history. No facial asymmetry. SKIN: Left great toe erythema and edema, left heel wound described above. Initial Vital Signs Initial Vital Signs: Vital Signs Temperature 97.0 F L 01/18/25 13:42 Pulse Rate 60 01/18/25 13:42 Respiratory Rate 14 01/18/25 13:42 Blood Pressure 129/60 01/18/25 13:42 Pulse Oximetry 100 01/18/25 13:42 Oxygen Delivery Method Room Air 01/18/25 13:42 <Sunni Sharp DO - Last Filed: 01/18/25 23:19> Initial Vital Signs Initial Vital Signs: Vital Signs Temperature 97.0 F L 01/18/25 13:42 Pulse Rate 60 01/18/25 13:42 Respiratory Rate 14 01/18/25 13:42 Blood Pressure 129/60 01/18/25 13:42 Pulse Oximetry 100 01/18/25 13:42 Oxygen Delivery Method Room Air 01/18/25 13:42 Course <Flores Abraham PA-C - Last Filed: 01/18/25 20:12> Orders Ordered: ED Orders 01/18/25 15:49 XR foot LT min 3V Stat 01/18/25 16:33 CBC Auto Diff [Complete Blood Count AUTO DIFF] Stat CMP [Comprehensive Metabolic Panel] Stat CRP [C-Reactive Protein Quant] Stat ESR [Erythrocyte Sedimentation Rate] Stat Lactate (Lactic Acid) Stat 01/18/25 16:50 Blood Culture Stat 01/18/25 17:14 CT LE LT w con Stat 01/18/25 19:19 Consult to Occupational Therapy Evaluate & Treat Consult to Physical Therapy Evaluate & Treat 01/18/25 22:23 MRSA (Nasal) PCR Stat 01/19/25 06:00 Basic Metabolic Panel DAILY Complete Blood Count AUTO DIFF DAILY Acetaminophen (Acetaminophen 325 Mg Tablet) 650 mg PO Q6H PRN PRN Reason: Fever/Mild Pain (1-3) Hydrocodone Bitart/Acetaminophen (Hydrocodone/Acet 5/325 Tablet) 1 tab PO Q4H PRN PRN Reason: Pain, Moderate (4-6) Atorvastatin Calcium (Atorvastatin 20 Mg Tablet) 80 mg PO DAILY [facility] Duloxetine HCl (Duloxetine 30 Mg Capsule) 30 mg PO BID [facility] Ferrous Sulfate (Ferrous Sulfate 325 Mg Tablet) 325 mg PO DAILY [facility] Gabapentin (Gabapentin 100 Mg Capsule) 0 mg PO .COMPLEX [facility] Hydromorphone HCl (Hydromorphone 0.5 Mg Inj) 0.5 mg IV Q2H PRN PRN Reason: Pain, Severe (7-10) Sodium Chloride (Normal Saline 0.9%) 1,000 mls @ 75 mls/hr IV CONT [facility] Piperacillin Sod/Tazobactam (Sod 3.375 gm/ Sodium Chloride) 100 mls @ 25 mls/hr IV Q8H [facility] Vancomycin HCl 500 mg/ Sodium (Chloride) 100 mls @ 100 mls/hr IV Q12H [facility] Stop: 01/25/25 21:59 Dextrose (D10w) 100 mls @ 999 mls/hr IV PRN PRN PRN Reason: Hypoglycemia Insulin Human Lispro (Insulin Lispro 100 Unit/Ml 3ml Vial) 0 unit SUBCUT ACHS ELVIS; Protocol Lisinopril (Lisinopril 10 Mg Tablet) 5 mg PO DAILY [facility] Naloxone HCl (Naloxone 0.4 Mg/Ml Vial) 0.2 mg IV Q2MIN PRN PRN Reason: Opiate Reversal Ondansetron HCl (Ondansetron 4 Mg/2 Ml Inj) 4 mg IV Q8HR PRN PRN Reason: Nausea And Vomiting Pantoprazole Sodium (Pantoprazole Dr 20 Mg Tablet) 20 mg PO BID [facility] Vancomycin HCl (Vancomycin Per Pharmacy) 1 request MISC NOW PRN PRN Reason: osteomyelitis Discontinued Medications Vancomycin HCl 1,000 mg/ (Sodium Chloride) 500 mls @ 250 mls/hr IV NOW ONE Stop: 01/18/25 18:45 Piperacillin Sod/Tazobactam (Sod 3.375 gm/ Sodium Chloride) 100 mls @ 25 mls/hr IV NOW ONE Stop: 01/18/25 18:48 Last Admin: 01/18/25 20:16 Dose: 25 mls/hr Documented By: NYDIA Piperacillin Sod/Tazobactam (Sod 3.375 gm/ Sodium Chloride) 100 mls @ 25 mls/hr IV Q8H [facility] Vancomycin HCl 1,500 mg/ (Sodium Chloride) 500 mls @ 250 mls/hr IV NOW ONE Stop: 01/18/25 22:14 Vancomycin HCl/Dextrose (Vancomycin) 1,500 mg in 300 mls @ 150 mls/hr IV NOW [facility] Stop: 01/18/25 22:59 Vancomycin HCl (Vancomycin Trough) 1 request MISC NOW [facility] Stop: 01/20/25 08:31 Vital Signs Vital signs: Vital Signs - 8 hr 01/18/25 19:10 01/18/25 20:00 Temperature 98.0 F 97.8 F Pulse Rate 57 L 58 L Respiratory Rate 17 Blood Pressure 170/76 H 163/56 H Pulse Oximetry 100 100 Oxygen Delivery Method Room Air Oxygen Flow Rate 0 <Sunni Sharp, - Last Filed: 01/18/25 23:19> Orders Ordered: ED Orders 01/18/25 15:49 XR foot LT min 3V Stat 01/18/25 16:33 CBC Auto Diff [Complete Blood Count AUTO DIFF] Stat CMP [Comprehensive Metabolic Panel] Stat CRP [C-Reactive Protein Quant] Stat ESR [Erythrocyte Sedimentation Rate] Stat Lactate (Lactic Acid) Stat 01/18/25 16:50 Blood Culture Stat 01/18/25 17:14 CT LE LT w con Stat 01/18/25 19:19 Consult to Occupational Therapy Evaluate & Treat Consult to Physical Therapy Evaluate & Treat 01/18/25 22:23 MRSA (Nasal) PCR Stat 01/19/25 06:00 Basic Metabolic Panel DAILY Complete Blood Count AUTO DIFF DAILY Acetaminophen (Acetaminophen 325 Mg Tablet) 650 mg PO Q6H PRN PRN Reason: Fever/Mild Pain (1-3) Hydrocodone Bitart/Acetaminophen (Hydrocodone/Acet 5/325 Tablet) 1 tab PO Q4H PRN PRN Reason: Pain, Moderate (4-6) Atorvastatin Calcium (Atorvastatin 20 Mg Tablet) 80 mg PO DAILY [facility] Duloxetine HCl (Duloxetine 30 Mg Capsule) 30 mg PO BID [facility] Ferrous Sulfate (Ferrous Sulfate 325 Mg Tablet) 325 mg PO DAILY [facility] Gabapentin (Gabapentin 100 Mg Capsule) 0 mg PO .COMPLEX [facility] Hydromorphone HCl (Hydromorphone 0.5 Mg Inj) 0.5 mg IV Q2H PRN PRN Reason: Pain, Severe (7-10) Sodium Chloride (Normal Saline 0.9%) 1,000 mls @ 75 mls/hr IV CONT [facility] Piperacillin Sod/Tazobactam (Sod 3.375 gm/ Sodium Chloride) 100 mls @ 25 mls/hr IV Q8H [facility] Vancomycin HCl 500 mg/ Sodium (Chloride) 100 mls @ 100 mls/hr IV Q12H [facility] Stop: 01/25/25 21:59 Dextrose (D10w) 100 mls @ 999 mls/hr IV PRN PRN PRN Reason: Hypoglycemia Insulin Human Lispro (Insulin Lispro 100 Unit/Ml 3ml Vial) 0 unit SUBCUT ACHS [facility]; Protocol Lisinopril (Lisinopril 10 Mg Tablet) 5 mg PO DAILY [facility] Naloxone HCl (Naloxone 0.4 Mg/Ml Vial) 0.2 mg IV Q2MIN PRN PRN Reason: Opiate Reversal Ondansetron HCl (Ondansetron 4 Mg/2 Ml Inj) 4 mg IV Q8HR PRN PRN Reason: Nausea And Vomiting Pantoprazole Sodium (Pantoprazole Dr 20 Mg Tablet) 20 mg PO BID [facility] Vancomycin HCl (Vancomycin Per Pharmacy) 1 request MIS NOW PRN PRN Reason: osteomyelitis Discontinued Medications Vancomycin HCl 1,000 mg/ (Sodium Chloride) 500 mls @ 250 mls/hr IV NOW ONE Stop: 01/18/25 18:45 Piperacillin Sod/Tazobactam (Sod 3.375 gm/ Sodium Chloride) 100 mls @ 25 mls/hr IV NOW ONE Stop: 01/18/25 18:48 Last Admin: 01/18/25 20:16 Dose: 25 mls/hr Documented By: NYDIA Piperacillin Sod/Tazobactam (Sod 3.375 gm/ Sodium Chloride) 100 mls @ 25 mls/hr IV Q8H [facility] Vancomycin HCl 1,500 mg/ (Sodium Chloride) 500 mls @ 250 mls/hr IV NOW ONE Stop: 01/18/25 22:14 Vancomycin HCl/Dextrose (Vancomycin) 1,500 mg in 300 mls @ 150 mls/hr IV NOW [facility] Stop: 01/18/25 22:59 Vancomycin HCl (Vancomycin Trough) 1 request MISC NOW [facility] Stop: 01/20/25 08:31 Vital Signs Vital signs: Vital Signs - 8 hr 01/18/25 19:10 01/18/25 20:00 Temperature 98.0 F 97.8 F Pulse Rate 57 L 58 L Respiratory Rate 17 Blood Pressure 170/76 H 163/56 H Pulse Oximetry 100 100 Oxygen Delivery Method Room Air Oxygen Flow Rate 0 MDM - Wound/Laceration <Flores Abraham PA-C - Last Filed: 01/18/25 20:12> Medical Records Attestation: I reviewed the patient's medical records. Medical records narrative: Reviewed prior podiatry notes including note Dr. Carrion, which do appeared report a history of hallux osteomyelitis Lab Data 01/18/25 16:33 01/18/25 16:33 Labs: Lab Results 01/18/25 Range/Units 16:33 WBC 8.7 (4.5-11.0) X10^3/uL RBC 4.14 (4.0-5.2) X10^6/uL Hgb 12.1 (12.0-16.0) g/dL Hct 36.4 (36-46) % MCV 87.9 (80-100) fL MCH 29.2 (26-34) PG MCHC 33.2 (30-36) % RDW 14.0 (11.6-14.8) % Plt Count 281 (150-400) X10^3/uL Neut % (Auto) 58.1 (50-75) % Lymph % (Auto) 31.2 (25-40) % [place] % (Auto) 6.3 (3-14) % Eos % (Auto) 3.0 (2-4) % Baso % (Auto) 1.4 (0-2) % Neut # (Auto) 5000 (1235-2681) /uL Lymph # (Auto) 2700 (5453-3720) /uL [place] # (Auto) 500 (0-900) /uL Eos # (Auto) 300 (0-450) /uL Baso # (Auto) 100 (0-100) /uL ESR 28 H (0-20) MM/HR Sodium 143 (137-145) mmol/L Potassium 4.7 (3.4-5.1) mmol/L Chloride 109 H (98-107) mmol/L Carbon Dioxide 27 (22-32) mmol/L BUN 18 H (7-17) mg/dL Creatinine 1.00 (0.52-1.04) mg/dL Estimated GFR > 60 (>60) mL/min BUN/Creatinine Ratio 18.0 (6-22) Glucose 101 H (70-99) mg/dL Lactate 2.0 (0.7-2.1) mmol/L Calcium 9.8 (8.4-10.2) mg/dL Total Bilirubin 0.2 (0.2-1.3) mg/dL AST 34 (14-36) IU/L ALT 27 (<35) IU/L Alkaline Phosphatase 64 (38-126) U/L C-Reactive Protein < 0.5 (<1.0) mg/dL Total Protein 7.3 (6.3-8.2) g/dL Albumin 4.2 (3.5-5.0) g/dL Globulin 3.1 (1.7-4.1) g/dL Albumin/Globulin Ratio 1.4 (1.0-2.8) Imaging Data Left Foot X-Ray: Radiologist's Impression: PROCEDURE: XR FOOT LT MIN 3V INDICATIONS: heel and great toe skin breakdown / wound TECHNIQUE: 3 views of the foot were acquired. COMPARISON: None. FINDINGS: Bones: There is prior amputation of 2nd toe at the level of 2nd proximal phalangeal base. Chronic appearing deformity and fusion at 1st interphalangeal joint is seen. No acute fracture or dislocation. No suspicious bony lesions. Subtle erosive changes are noted involving plantar cortex of 1st distal phalanx concerning for early osteomyelitis. Osteoarthritic changes are noted throughout left foot. No gross bony erosive changes are seen in the calcaneus. Soft tissues: No tibiotalar joint effusion. Achilles tendon appears normal. IMPRESSION: Finding is concerning for osteomyelitis involving plantar aspect of 1st distal phalanx. No acute fracture or dislocation. Chronic changes as above. Dictated by: Paul Telles M.D. on 01/18/2025 at 16:10 Approved by: Paul Telles M.D. on 01/18/2025 at 16:25 [facility] Narrative Medical decision making narrative: 64-year-old female with a past medical history of CAD s/p CABG, type 1 diabetes, chronic left heel wound who presents to the emergency department via EMS from [facility] for left heel wound, concerned for infection. Patient also notes her left great toe became very red and swollen today. Differential diagnosis includes but not limited to pressure ulcer, chronic nonhealing wound, infection, cellulitis, abscess, osteomyelitis, diabetic wound, etc. On exam the patient is in no acute distress, nontoxic appearing, vital signs appropriate. She has a chronic appearing nonhealing wound of the left here and acute erythema and edema of the left great toe from today. Bilateral feet are neurovascularly intact, chronic onychomycosis. We will obtain CBC, CMP, lactate, x-ray of foot to further evaluate. X-ray concerning for osteomyelitis involving the plantar aspect of the 1st distal phalanx. We will add on blood cultures, ESR, CRP, CT left foot with IV contrast. Extensive chart review of prior podiatry notes reveals patient appears to have previously have osteomyelitis of left hallux however redness and swelling is new. Labs reveal normal WBC count 8.7, normal hemoglobin 12.1. ESR is elevated at 28. Normal sodium 143, potassium 4.7, renal function reveals BUN 18 creatinine of 1.00. Glucose 101. Lactate 2.0. Discussed case with hospitalist Dr. Zepeda, admit inpatient, concern for left great toe osteomyelitis, we will treat with vancomycin and Zosyn, will obtain MRSA screen. Patient is agreeable to admission and the need for antibiotics at this time. 1929: Spoke with nighttime hospitalist Dr. Carter, he would like orthopedics or podiatry consult prior to admission 1939: Spoke with orthopedic surgeon on-call, Dr. King, who agrees to consult on the patient, we will see her in patient, at this time recommends continued management with antibiotics, no plan for emergent surgical intervention. 2009: Dr. Carter accepts patient for admission. Pharmacy is dosing vanc. <Sunni Sharp, DO - Last Filed: 01/18/25 23:19> Lab Data Labs: Lab Results 01/18/25 Range/Units 16:33 WBC 8.7 (4.5-11.0) X10^3/uL RBC 4.14 (4.0-5.2) X10^6/uL Hgb 12.1 (12.0-16.0) g/dL Hct 36.4 (36-46) % MCV 87.9 (80-100) fL MCH 29.2 (26-34) PG MCHC 33.2 (30-36) % RDW 14.0 (11.6-14.8) % Plt Count 281 (150-400) X10^3/uL Neut % (Auto) 58.1 (50-75) % Lymph % (Auto) 31.2 (25-40) % [place] % (Auto) 6.3 (3-14) % Eos % (Auto) 3.0 (2-4) % Baso % (Auto) 1.4 (0-2) % Neut # (Auto) 5000 (8524-3928) /uL Lymph # (Auto) 2700 (1577-6487) /uL [place] # (Auto) 500 (0-900) /uL Eos # (Auto) 300 (0-450) /uL Baso # (Auto) 100 (0-100) /uL ESR 28 H (0-20) MM/HR Sodium 143 (137-145) mmol/L Potassium 4.7 (3.4-5.1) mmol/L Chloride 109 H (98-107) mmol/L Carbon Dioxide 27 (22-32) mmol/L BUN 18 H (7-17) mg/dL Creatinine 1.00 (0.52-1.04) mg/dL Estimated GFR > 60 (>60) mL/min BUN/Creatinine Ratio 18.0 (6-22) Glucose 101 H (70-99) mg/dL Lactate 2.0 (0.7-2.1) mmol/L Calcium 9.8 (8.4-10.2) mg/dL Total Bilirubin 0.2 (0.2-1.3) mg/dL AST 34 (14-36) IU/L ALT 27 (<35) IU/L Alkaline Phosphatase 64 (38-126) U/L C-Reactive Protein < 0.5 (<1.0) mg/dL Total Protein 7.3 (6.3-8.2) g/dL Albumin 4.2 (3.5-5.0) g/dL Globulin 3.1 (1.7-4.1) g/dL Albumin/Globulin Ratio 1.4 (1.0-2.8) Discharge Plan Departure Patient Disposition: Admitted As Inpatient Clinical Impression: Osteomyelitis of great toe of left foot, Non healing left heel wound Type 1 diabetes Qualifiers: Diabetes mellitus complication status: with skin complications Diabetes mellitus complication detail: with foot ulcer Qualified Code(s): E10.621 - Type 1 diabetes mellitus with foot ulcer Admit Date/Time: 01/18/25 20:10 Admit Provider: Paddy Carter ED Sign-out <Sunni Sharp DO - Last Filed: 01/18/25 23:19> Cosign ED Attending [place] Attestation: I was immediately available in the department for consultation. Case was discussed, concern for osteomyelitis in the 1st toe, patient notes new redness and was following with the Wound Care tell him on a month ago 1 1 to a new rehab facility in his no longer available. Also has a new ulcer on her foot. Case was discussed with Orthopedic surgery and hospitalist and patient accepted for osteomyelitis of the great toe and nonhealing foot ulcer.
--- NOTE | 2025-01-18 15:49 | DI.RAD.S_ITS ---
PROCEDURE: XR FOOT LT MIN 3V INDICATIONS: heel and great toe skin breakdown / wound TECHNIQUE: 3 views of the foot were acquired. COMPARISON: None. FINDINGS: Bones: There is prior amputation of 2nd toe at the level of 2nd proximal phalangeal base. Chronic appearing deformity and fusion at 1st interphalangeal joint is seen. No acute fracture or dislocation. No suspicious bony lesions. Subtle erosive changes are noted involving plantar cortex of 1st distal phalanx concerning for early osteomyelitis. Osteoarthritic changes are noted throughout left foot. No gross bony erosive changes are seen in the calcaneus. Soft tissues: No tibiotalar joint effusion. Achilles tendon appears normal. IMPRESSION: Finding is concerning for osteomyelitis involving plantar aspect of 1st distal phalanx. No acute fracture or dislocation. Chronic changes as above. Dictated by: Paul Telles M.D. on 01/18/2025 at 16:10 Approved by: Paul Telles M.D. on 01/18/2025 at 16:25
[2025-01-18 16:43] LABS: Add Manual Diff / Slide Review NO; Basophils Absolute Auto 100 /uL (0-100); Basophils Percent Auto 1.4 % (0-2); Eosinophils Absolute Auto 300 /uL (0-450); Hematocrit 36.4 % (36-46); Hemoglobin 12.1 g/dL (12.0-16.0); Lymphocytes Absolute Auto 2700 /uL (1100-4500); Lymphocytes Percent Auto 31.2 % (25-40); Mean Corpuscular HGB Conc 33.2 % (30-36); Mean Corpuscular Hemoglobin 29.2 PG (26-34); Mean Corpuscular Volume 87.9 fL (80-100); Monocytes Absolute Auto 500 /uL (0-900); Monocytes Percent Auto 6.3 % (3-14); Neutrophils Absolute Auto 5000 /uL (1500-7000); Neutrophils Percent Auto 58.1 % (50-75); Platelet Count 281 X10^3/uL (150-400); Red Blood Cell Count 4.14 X10^6/uL (4.0-5.2); White Blood Cell Count 8.7 X10^3/uL (4.5-11.0)
[2025-01-18 17:06] LABS: Alanine Aminotransferase 27 IU/L (<35); Albumin 4.2 g/dL (3.5-5.0); Albumin Globulin Ratio 1.4 (1.0-2.8); Alkaline Phosphatase 64 U/L (38-126); Aspartate Aminotransferase 34 IU/L (14-36); Bilirubin Total 0.2 mg/dL (0.2-1.3); Blood Urea Nitrogen 18 mg/dL (7-17); Calcium 9.8 mg/dL (8.4-10.2); Carbon Dioxide 27 mmol/L (22-32); Chloride 109 mmol/L (98-107); Estimated Glomerular Filt Rate > 60 mL/min (>60); Globulin 3.1 g/dL (1.7-4.1); Glucose 101 mg/dL (70-99); HEMOLYSIS < 15 (0-50); Potassium 4.7 mmol/L (3.4-5.1); Sodium 143 mmol/L (137-145); Total Protein 7.3 g/dL (6.3-8.2)
--- NOTE | 2025-01-18 17:14 | DI.CT.S_ITS ---
PROCEDURE: CT LE LT W CON INDICATIONS: great toe and heel wound; concern for osteomyelitis TECHNIQUE: After the administration of intravenous contrast, 3 mm axial sections acquired of the left foot , with coronal and sagittal reformats. For radiation dose reduction, the following was used: automated exposure control, adjustment of mA and/or kV according to patient size. COMPARISON: [facility], CR, XR FOOT LT MIN 3V, 01/18/2025, 15:48. FINDINGS: Image quality: Excellent. Bones: Diffuse osseous demineralization. Status post partial amputation of the 2nd digit to the level of the proximal phalangeal base. Pseudoarthrosis of the 1st digit proximal and distal phalanges. Minimal erosions at the plantar aspect of the 1st digit phalangeal tuft (11/28). Joints: The joint spaces are preserved. No significant joint effusion in the field of view. Muscles: Severe fatty replacement of the plantar foot musculature. Tendons: The visualized flexor and extensor contours are within normal limits. Vessels: The dorsalis pedis and posterior tibial arteries are patent without aneurysmal dilatation. Other soft tissues: No drainable fluid collection with peripheral enhancement. Soft tissue edema at the plantar aspect of the 1st digit phalanx and hindfoot without clear evidence of a sinus tract (59; 7104). IMPRESSION: 1. Minimal erosion at the plantar aspect of the 1st digit distal phalangeal tuft. Please correlate with a probe to bone test for osteomyelitis. No drainable abscess. 2. Diffuse fatty replacement of the plantar foot musculature, which can be seen with neuropathic or diabetic myopathy. Dictated by: Rajiv Argueta M.D. on 01/18/2025 at 19:01 Approved by: Rajiv Argueta M.D. on 01/18/2025 at 19:08
[2025-01-18 17:35] LABS: Erythrocyte Sedimentation Rate 28 MM/HR (0-20)
[2025-01-18 17:55] LABS: C-Reactive Protein Quant < 0.5 mg/dL (<1.0)
--- NOTE | 2025-01-18 19:02 | PC.NURSE ---
Lab unable to draw patient second set of cultures after a couple of attempts. This RN attempts in RIGHT hand and is unsuccessful. Admitting hospitalist provider Duane called and made aware. OK to move forward without second set of blood cultures.
[2025-01-18 19:10] VITALS: BP 170/76; PULSE 57; TEMP 36.7; O2SAT 100
[2025-01-18 20:00] VITALS: BP 163/56; PULSE 58; RESP 17; TEMP 36.6; O2SAT 100
[2025-01-18] MEDS: SODIUM CHLORIDE 0.9% 1,000 ML 75 ML IV (20:15)
[2025-01-18] MEDS: PIPERACILLIN/TAZO 3.375 GM in SODIUM CHLORIDE 0.9% 100 ML IV (20:16)
[2025-01-18 20:24] VITALS: BMI 28.3
--- NOTE | 2025-01-18 22:03 | P.HP_ITS ---
History of Present Illness History of Present Illness Chief complaint: Ulcer on L heel Narrative: 64-year-old female with past medical history of depression, coronary artery disease status post CABG, neuropathy, insulin-dependent diabetes, hypertension, hyperlipidemia and GERD presents with nonhealing left heel wound. Of note per the patient's report, the patient has been dealing with his chronic left heel wound for the last few months. The patient was sent here from [facility] due to concern for acute infection of his left heel wound. Also there was noted that the left great toe became very red and swollen today per the staff. Her care facility. However over the last 1 month the patient has not seen wound care since the patient was transferred to a new assisted living. Of note the patient also had her left second toe amputated many years ago due to similar infection. At baseline the patient probably gets around in a wheelchair. Otherwise the patient denies any recent fever, chills, nausea, vomiting, diarrhea, shortness of breath or chest pain. In our emergency room, the patient was hemodynamically stable without signs of sepsis. Labs were relatively benign. X-ray shows left first distal phalanx concerning for osteomyelitis. CT of the left foot shows similar findings in which it is concerning for osteomyelitis with recommendation to correlate with probe to bone test for osteomyelitis. Orthopedic surgeon was consulted and recommended admission for IV antibiotic and he will consult on the patient. Of note the patient was given IV vancomycin and Zosyn. [facility], [facility] Medical History Coronary artery disease Hypomagnesemia Tobacco abuse Hyperlipidemia Type 1 diabetes mellitus Non-healing wound Toe amputation status Surgical History History of cataract removal with insertion of prosthetic lens (~2003) History of cataract removal with insertion of prosthetic lens (~1993) History of third molar tooth extraction History of tonsillectomy 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) Family History Brother Age: 70 Alcoholism Father Alcohol abuse Grandfather Alcoholism Heart attack Family/Other Breast cancer Mother Multiple sclerosis Family/Other Heroin abuse Family/Other Heroin abuse Social History household members: caregiver Smoking Status: Current every day smoker alcohol intake: former Meds Home Medications and Allergies Home Medications Medication Instructions Recorded Confirmed Type [INSULIN PUMP] ##0 04/22/13 08/29/21 History Bacillus coagulans 10 billion cell cell PO 11/11/18 08/29/21 History capsule,delayed release (Probiotic (B. coagulans)) insulin lispro 100 unit/mL See Rx Instructions continuous 04/27/20 08/29/21 Rx subcutaneous solution (Humalog subcutaneous infusion SEE U-100 Insulin) INSTRUCTIONS #90 days ferrous sulfate 27 mg iron tablet 27 mg PO DAILY 10/31/20 08/29/21 History duloxetine 30 mg capsule,delayed 30 mg PO BID #180 caps 08/29/21 08/29/21 Rx release (Cymbalta) ferrous sulfate 325 mg (65 mg 325 mg PO DAILY #90 tabs 08/29/21 08/29/21 Rx iron) tablet (Iron (ferrous sulfate)) lisinopril 10 mg tablet 5 mg (1/2 x 10 mg) PO Q DAY #90 08/29/21 08/29/21 Rx tabs omeprazole magnesium 20 mg 20 mg PO BID Acid indigestion #180 08/29/21 08/29/21 Rx tablet,delayed release (Prilosec caps OTC) rosuvastatin 40 mg tablet (Crestor) 40 mg PO DAILY #90 tabs 08/29/21 08/29/21 Rx gabapentin 100 mg capsule See Rx Instructions PO .COMPLEX 09/03/22 Rx #360 caps Allergies Allergy/AdvReac Type Severity Reaction Status Date / Time No Known Drug Allergies Allergy Verified 01/18/25 13:47 Review of Systems Review of Systems ROS: Yes All systems reviewed with the patient and are negative except as otherwise documented Exam Vital Signs (past 8 hours): - 01/18/25 19:10 01/18/25 20:00 Temperature 98.0 F 97.8 F Pulse Rate 57 L 58 L Respiratory Rate 17 Blood Pressure 170/76 H 163/56 H Pulse Oximetry 100 100 Oxygen Delivery Method Room Air Oxygen Flow Rate 0 Oxygen Delivery Method Room Air Oxygen Flow Rate 0 Narrative Exam Narrative: Physical Exam: GENERAL: The patient is not in any acute distressed. Awake and alert. HEENT: Nonicteric sclerae, PERRLA, EOMI. Oropharynx clear. Moist mucous membranes. Conjunctivae appear well perfused. HEART: Regular rate and rhythm without murmurs. No lower extremities edema. LUNGS: Clear to auscultation bilaterally. No wheezing, crackles or rhonchi ABDOMEN: Soft, positive bowel sounds, nontender. SKIN: Wound noted in left heal and erythema and wound on left 1st great toe. Otherwise No rash, no excessive bruising, petechiae, or purpura. NEUROLOGIC: AxO x 3. Cranial nerves II-XII intact without motor/sensory deficit. Objective Labs 01/18/25 16:33 01/18/25 16:33 Labs: Laboratory Results - last 24 hr 01/18/25 16:33 WBC 8.7 RBC 4.14 Hgb 12.1 Hct 36.4 MCV 87.9 MCH 29.2 MCHC 33.2 RDW 14.0 Plt Count 281 Neut % (Auto) 58.1 Lymph % (Auto) 31.2 [place] % (Auto) 6.3 Eos % (Auto) 3.0 Baso % (Auto) 1.4 Neut # (Auto) 5000 Lymph # (Auto) 2700 [place] # (Auto) 500 Eos # (Auto) 300 Baso # (Auto) 100 ESR 28 H Sodium 143 Potassium 4.7 Chloride 109 H Carbon Dioxide 27 BUN 18 H Creatinine 1.00 Estimated GFR > 60 BUN/Creatinine Ratio 18.0 Glucose 101 H Lactate 2.0 Calcium 9.8 Total Bilirubin 0.2 AST 34 ALT 27 Alkaline Phosphatase 64 C-Reactive Protein < 0.5 Total Protein 7.3 Albumin 4.2 Globulin 3.1 Albumin/Globulin Ratio 1.4 Assessment & Plan Assessment & Plan narrative: Osteomyelitis of the left first great toe. Admit the patient to medical floor as inpatient. Continue IV vancomycin and Zosyn. Of note the patient is not septic at this time. Appreciate further input and management per orthopedic surgeon. Insulin-dependent diabetes. Subcu insulin and monitor glucose. Hyperlipidemia. Resume home statin. Depression. Resume Home Cymbalta. Neuropathy. Resume home gabapentin. Hypertension. Resume home lisinopril GERD. Resume home PPI. DVT prophylaxis SCDs for now due to possible surgical management of osteomyelitis in the morning. CODE STATUS full code. Disposition likely home in 2 to 3 days - As the provider of this telehealth evaluation, requested by the patient's evaluating physician, I attest that I introduced myself to the patient, provided my credentials and determined that telemedicine via a real-time, 2 way interactive audio and video platform is an appropriate and effective means of providing this service. - I reviewed the patient's chart and had a discussion with the member of the patient's treatment team. - The patient and I mutually agreed with continuation of this evaluation via telemedicine. The patient consented for the telemedicine evaluation. - This virtual encounter was taken place from [place] by Dr. Paddy Carter. The patient was evaluated at [facility]. The encounter was approximately 35 minutes. The nurse was present during the entire time of the encounter and was able to move the stethoscope in appropriate directions. Time-Based Coding :: [TOTAL MINUTES] spent with patient and on the chart (including review of chart, obtaining history, exam, reviewing outside data, placing orders, documenting exam and treatment plan, and counseling patient) on [DATE]. Quality VTE Deep Vein Thrombosis/Pulmonary Embolism Present on Admission: No
[2025-01-18 22:15] VITALS: BP 168/66; PULSE 68
[2025-01-18] MEDS: lisinopriL 10 MG TABLET 5 MG PO (22:15)
[2025-01-18] MEDS: DULOXETINE 30 MG CAPSULE PO (22:15)
[2025-01-18] MEDS: VANCOMYCIN 1,500 MG/300 ML PIGGYBACK 150 MG IV (23:50)
[2025-01-18 23:53] LABS: MRSA (Nasal) PCR DETECTED (Not Detect)
[2025-01-19] MEDS: PIPERACILLIN/TAZO 3.375 GM in SODIUM CHLORIDE 0.9% 100 ML IV ×3 (02:55→18:12)
[2025-01-19] MEDS: HYDROCODONE/ACET 5/325 TABLET 1 TAB PO (03:31)
[2025-01-19 04:00] VITALS: BP 173/52; PULSE 56; RESP 17; TEMP 35.9; O2SAT 98
[2025-01-19 05:54] LABS: Add Manual Diff / Slide Review NO; Basophils Absolute Auto 100 /uL (0-100); Basophils Percent Auto 1.4 % (0-2); Eosinophils Absolute Auto 300 /uL (0-450); Eosinophils Percent Auto 3.3 % (2-4); Hematocrit 30.5 % (36-46); Hemoglobin 10.4 g/dL (12.0-16.0); Lymphocytes Absolute Auto 2300 /uL (1100-4500); Mean Corpuscular Hemoglobin 29.7 PG (26-34); Mean Corpuscular Volume 87.3 fL (80-100); Monocytes Absolute Auto 600 /uL (0-900); Monocytes Percent Auto 6.7 % (3-14); Neutrophils Absolute Auto 5200 /uL (1500-7000); Neutrophils Percent Auto 61.6 % (50-75); Platelet Count 241 X10^3/uL (150-400); Red Blood Cell Count 3.49 X10^6/uL (4.0-5.2); Red Cell Distribution Width 13.8 % (11.6-14.8); White Blood Cell Count 8.5 X10^3/uL (4.5-11.0)
[2025-01-19 06:08] LABS: Blood Urea Nitrogen 17 mg/dL (7-17); Calcium 9.2 mg/dL (8.4-10.2); Carbon Dioxide 22 mmol/L (22-32); Chloride 112 mmol/L (98-107); Estimated Glomerular Filt Rate 59 mL/min (>60); Glucose 72 mg/dL (70-99); HEMOLYSIS < 15 (0-50); Potassium 4.3 mmol/L (3.4-5.1); Sodium 139 mmol/L (137-145)
[2025-01-19 08:00] VITALS: BP 112/45; PULSE 51; RESP 18; TEMP 36.2; O2SAT 98
[2025-01-19] MEDS: ATORVASTATIN 20 MG TABLET 80 MG PO (09:55)
[2025-01-19] MEDS: FERROUS SULFATE 325 MG TABLET PO (09:57)
[2025-01-19] MEDS: DULOXETINE 30 MG CAPSULE PO ×2 (09:57→21:01)
[2025-01-19] MEDS: GABAPENTIN 100 MG CAPSULE PO ×2 (09:57→21:01)
[2025-01-19] MEDS: PANTOPRAZOLE DR 20 MG TABLET PO ×2 (09:57→21:01)
--- NOTE | 2025-01-19 10:25 | OT.IPNOTE ---
Per hospitalist okay to hold therapy evals today as pt to have orthro consult first.
--- NOTE | 2025-01-19 10:26 | PT-IP ANOTE ---
Patient discussed in rounds. Physician reports to hold Physical Therapy today. Pt is pending ortho consult for LE wound. No weight bearing status ordered at this time. Will continue to follow to determine if skilled Physical Therapy is needed at this time.
[2025-01-19] MEDS: VANCOMYCIN HCL 750 MG in SODIUM CHLORIDE 0.9% 250 ML 250 MG IV (11:24)
[2025-01-19] MEDS: INSULIN LISPRO 100 UNIT/ML 3ML VIAL SUBCUT ×3 (12:30→21:03)
--- NOTE | 2025-01-19 13:34 | CM.DANOTE ---
Initial DCP Assessment Note Pt is a 64 yo female, resident at [facility] in [place], presents with non-healing left heel wound. Surgery consulted. PCP: Dr Zepeda Payer: [facility] ([employer]# [id number]) Reviewed chart, pt discussed in multidisciplinary rounds this morning. Awaiting surgery consult. Met w/patient who reports living at [facility] since December 23 2024. Patient receives help with meals, laundry, bathing assist, dressing assist and medication management. Patient is mostly wheelchair dependent. Patient plans to return to [facility] upon DC. Patient moved into [facility] from [facility]. Patient is guarded with her responses. Visit kept brief. Plan: Discharge back to [facility] is anticipated, likely [facility] transport vs facility van. CM team will plan to follow clinical course closely. VALERIY Foster Discharge Planning/Care Management CM Discharge Assessment Start: 01/18/25 18:56 Freq: Status: Active Protocol: Document 01/19/25 13:24 ANAID (Rec: 01/19/25 13:33 ANAID [id number]) Discharge Planning Assessment Assigned Scientific Informatics Leader VALERIY Gomez DPOA/Assigned Designee Name Flaco San, spouse Contact Information [phone] Advance Directives? No History Provided By Patient,Medical Record Has Patient been admitted in last 30 No days? Prior Living Arrangements Assisted Living Type of transporation used prior to Relies on Others admit Facility Name Admitted From: [facility] Willing to Return to Facility? Yes Independent with ADL's No Is patient alert and oriented? Yes Needs Assistance With Bathing,Meal Prep,Toileting, Managing Medications,Home Chores / Shopping Barriers to Discharge No Comment Return to [facility] is anticipated. Discharge Plan Assisted Living Facility Transportation Arrangement [facility] transport vs facility van Referrals Initiated None needed Additional Comment Follow closely as medical plan of care unfolds.
[2025-01-19 16:00] VITALS: BP 181/60; PULSE 56; RESP 16; TEMP 36.2; O2SAT 98
--- NOTE | 2025-01-19 16:02 | P.CONS_ITS ---
History of Present Illness Consult details Chief complaint: Ulcer on L heel Narrative: CHIEF COMPLAINT My left foot wound isn't healing. SUBJECTIVE The patient describes a non-healing wound on the left foot which has been a persistent issue. She also mentions a separate left heel wound that requires attention. There is no open wound on the toe, but she reports some blistering at the very distal tip of the hallux. She expresses hope that antibiotics will help improve the condition, as the wound appears better than before. SOCIAL HISTORY None provided. PERTINENT PMH: - Coronary artery disease, status post CABG - Neuropathy - Insulin-dependent diabetes mellitus - Depression - GERD PRIOR HIP/KNEE PROCEDURES None PHYSICAL EXAM Left Foot Exam: - Examination: Desquamation of the skin overlying the calcaneal tuberosity on the left heel observed. No full-thickness defects noted. No open wounds over the hallux, though blistering is seen at the very distal tip. RADIOLOGY: Images independently reviewed and interpreted: 1. Left Foot - AP and lateral views performed 2025-01-18 - mild erosive changes in the DIP joint of the hallux. Prior 2nd toe amputation 2. CT scan of the left foot obtained 2025-01-18 - no large fluid collections present in the hallux ASSESSMENT Patient with left distal phalanx osteomyelitis, likely secondary to non-healing foot wound, with a history of insulin-dependent diabetes mellitus. PLAN The patient will continue with medical management and antibiotics for the left foot osteomyelitis. Outpatient follow-up with a television news anchor should be arranged to address the chronic nature of the heel wound and ensure comprehensive wound care. One option for that would be Dr. Pereira, who has a clinic here in [place]. - Maintain dressing on heel wound that is currently applied - May weightbear while maintaining a dressing - Continue current antibiotic therapy during admission. Likely will DC home with oral antibiotics - Arrange outpatient podiatry follow-up for wound care after discharge - Monitor for any signs of worsening infection PLAIN LANGUAGE SUMMARY You don't need surgery for your foot issue right now. We are going to keep you on antibiotics while you are here, and then you'll follow up with a television news anchor after you leave to help manage the wound on your heel. This should help you get back on track. Meds Home Medications and Allergies Home Medications Medication Instructions Recorded Confirmed Type insulin lispro 100 unit/mL See Rx Instructions continuous 04/27/20 01/19/25 Rx subcutaneous solution (Humalog subcutaneous infusion SEE U-100 Insulin) INSTRUCTIONS #90 days duloxetine 30 mg capsule,delayed 30 mg PO BID #180 caps 08/29/21 01/19/25 Rx release (Cymbalta) lisinopril 10 mg tablet 5 mg (1/2 x 10 mg) PO Q DAY #90 08/29/21 01/19/25 Rx tabs rosuvastatin 40 mg tablet (Crestor) 40 mg PO DAILY #90 tabs 08/29/21 01/19/25 Rx citalopram 20 mg tablet 20 mg PO DAILY 01/19/25 01/19/25 History gabapentin 300 mg capsule 300 mg PO DAILY 01/19/25 01/19/25 History insulin glargine-yfgn 100 unit/mL 20 unit SUBCUT QPM 01/19/25 01/19/25 History (3 mL) subcutaneous pen insulin glargine-yfgn 100 unit/mL 25 unit SUBCUT QAM 01/19/25 01/19/25 History (3 mL) subcutaneous pen Allergies Allergy/AdvReac Type Severity Reaction Status Date / Time No Known Drug Allergies Allergy Verified 01/18/25 13:47 Exam Vital Signs (past 8 hours): Oxygen Delivery Method Room Air Oxygen Flow Rate 0 Objective Labs 01/19/25 05:38 01/19/25 05:38 Labs: Laboratory Results - last 24 hr 01/18/25 01/18/25 01/19/25 16:33 22:23 05:38 WBC 8.7 8.5 RBC 4.14 3.49 L Hgb 12.1 10.4 L Hct 36.4 30.5 L MCV 87.9 87.3 MCH 29.2 29.7 MCHC 33.2 34.0 RDW 14.0 13.8 Plt Count 281 241 Neut % (Auto) 58.1 61.6 Lymph % (Auto) 31.2 27.0 [place] % (Auto) 6.3 6.7 Eos % (Auto) 3.0 3.3 Baso % (Auto) 1.4 1.4 Neut # (Auto) 5000 5200 Lymph # (Auto) 2700 2300 [place] # (Auto) 500 600 Eos # (Auto) 300 300 Baso # (Auto) 100 100 ESR 28 H Sodium 143 139 Potassium 4.7 4.3 Chloride 109 H 112 H Carbon Dioxide 27 22 BUN 18 H 17 Creatinine 1.00 1.06 H Estimated GFR > 60 59 L BUN/Creatinine Ratio 18.0 16.0 Glucose 101 H 72 Lactate 2.0 Calcium 9.8 9.2 Total Bilirubin 0.2 AST 34 ALT 27 Alkaline Phosphatase 64 C-Reactive Protein < 0.5 Total Protein 7.3 Albumin 4.2 Globulin 3.1 Albumin/Globulin Ratio 1.4 Nasal Screen MRSA (PCR) Detected H [facility] Medical History Coronary artery disease Hypomagnesemia Tobacco abuse Hyperlipidemia Type 1 diabetes mellitus Non-healing wound Toe amputation status Surgical History History of cataract removal with insertion of prosthetic lens (~2003) History of cataract removal with insertion of prosthetic lens (~1993) History of third molar tooth extraction History of tonsillectomy 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) Family History Brother Age: 70 Alcoholism Father Alcohol abuse Grandfather Alcoholism Heart attack Family/Other Breast cancer Mother Multiple sclerosis Family/Other Heroin abuse Family/Other Heroin abuse Social History household members: caregiver Tobacco & Substance Use Smoking Status: Current every day smoker alcohol intake: former Assessment & Plan Assessment and plan (1) Osteomyelitis of great toe of left foot: Status: Acute Time-Based Coding :: [TOTAL MINUTES] spent with patient and on the chart (including review of chart, obtaining history, exam, reviewing outside data, placing orders, documenting exam and treatment plan, and counseling patient) on [DATE]. PROFEE Charge Codes Inpatient or Observation consultation: [id number]
--- NOTE | 2025-01-19 16:46 | OT.IPNOTE ---
Attempted OT eval and pt refused as states too tired. Able to clarify with hospitalist from orthro consult, pt is WBAT.
--- NOTE | 2025-01-19 17:22 | PC.NURSE ---
Addendum entered by Marya Liriano R.N. 01/19/25 17:28: into see patients l.heel today, right before applying new mepilex heel bandage . He is not going to do surgery on patient or debridement. Will take photos of l.heel and blood blister to great toe in the morning as dressing is intact at this time. Patient has a pressure injury to that left heel. Original Note: Patient with flat affect. States that she can transfer herself at [place] where she lives and she does this when going to the restroom. Patient is a two person assist to get to the c and her knees buckle on her. Used the walker, and bedside handle but she states that this did not help her. Patient would rather rely on grabbing onto two staff members to transfer her to the commode. She does not have good body mechanics and she cannot straighten herself out when she is standing up. Patient sleepy for most of the day. Her appetite is good, patient is a type 1 diabetic and her last bs was 224. She is resting comfortably.
--- NOTE | 2025-01-19 18:42 | PM.PN.1 ---
Subjective Subjective Interval history: 64 F admitted with possible osteo of L 1st toe distally, seen by orthopedic surgery, and no acute surgical management in recommended at this time. It is still not entirely clear if this represents an acute or chronic osteo of her L 1st toe. Patient denies pain at this time. No fever, chills, nausea, vomiting. Exam Vital Signs (past 8 hours): - 01/19/25 16:00 Temperature 97.1 F L Pulse Rate 56 L Respiratory Rate 16 Blood Pressure 181/60 H Pulse Oximetry 98 Oxygen Flow Rate 0 Oxygen Delivery Method Room Air Oxygen Flow Rate 0 Narrative Exam Narrative: Physical Exam: GENERAL: The patient is not in any acute distressed. Awake and alert. HEENT: Nonicteric sclerae, PERRLA, EOMI. Oropharynx clear. Moist mucous membranes. Conjunctivae appear well perfused. HEART: Regular rate and rhythm without murmurs. No lower extremities edema. LUNGS: Clear to auscultation bilaterally. No wheezing, crackles or rhonchi ABDOMEN: Soft, positive bowel sounds, nontender. SKIN: Wound noted in left heal and erythema and wound on left 1st great toe. Otherwise No rash, no excessive bruising, petechiae, or purpura. NEUROLOGIC: AxO x 3. Cranial nerves II-XII intact without motor/sensory deficit. Objective Labs 01/19/25 05:38 01/19/25 05:38 Labs: Laboratory Results - last 24 hr 01/18/25 01/19/25 22:23 05:38 WBC 8.5 RBC 3.49 L Hgb 10.4 L Hct 30.5 L MCV 87.3 MCH 29.7 MCHC 34.0 RDW 13.8 Plt Count 241 Neut % (Auto) 61.6 Lymph % (Auto) 27.0 [place] % (Auto) 6.7 Eos % (Auto) 3.3 Baso % (Auto) 1.4 Neut # (Auto) 5200 Lymph # (Auto) 2300 [place] # (Auto) 600 Eos # (Auto) 300 Baso # (Auto) 100 Sodium 139 Potassium 4.3 Chloride 112 H Carbon Dioxide 22 BUN 17 Creatinine 1.06 H Estimated GFR 59 L BUN/Creatinine Ratio 16.0 Glucose 72 Calcium 9.2 Nasal Screen MRSA (PCR) Detected [facility] Medical History Coronary artery disease Hypomagnesemia Tobacco abuse Hyperlipidemia Type 1 diabetes mellitus Non-healing wound Toe amputation status Surgical History History of cataract removal with insertion of prosthetic lens (~2003) History of cataract removal with insertion of prosthetic lens (~1993) History of third molar tooth extraction History of tonsillectomy 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) Family History Brother Age: 70 Alcoholism Father Alcohol abuse Grandfather Alcoholism Heart attack Family/Other Breast cancer Mother Multiple sclerosis Family/Other Heroin abuse Family/Other Heroin abuse Social History household members: caregiver Smoking Status: Current every day smoker alcohol intake: former Assessment & Plan Assessment & Plan narrative: Osteomyelitis of the left first great toe. Unclear chronicity assume chronic with acute skin and soft tissue infection. - unclear at this time based on documentation and previous history if her left 1st toe represents an acute or chronic osteomyelitis at this time. ESR is only mildly elevated. No leukocytosis. - At this time, after discussion with orthopedics provider favor treatment of oral antibiotics for an acute skin and soft tissue infection in the setting of presumed chronic 1st toe osteo. - continue heel dressing, outpatient podiatry follow up recommended. - continue zosyn and vancomycin at this time. - Discussed with orthopedics provider today, recommends WBAT status. Diabetic foot ulcer of the left heel - continue current wound dressing - WBAT - outpatient podiatry follow up. Insulin-dependent diabetes. Continue home Subcu insulin and monitor glucose. Hyperlipidemia. Resume home statin. Depression. Resume Home Cymbalta. Neuropathy. Resume home gabapentin. Hypertension. Resume home lisinopril GERD. Resume home PPI. DVT prophylaxis SCDs for now due to possible surgical management of osteomyelitis in the morning. CODE STATUS full code. Disposition - home vs SNF pending PT/OT evaluations. Plan on PO antibiotics at this time. Time-Based Coding :: [TOTAL MINUTES] spent with patient and on the chart (including review of chart, obtaining history, exam, reviewing outside data, placing orders, documenting exam and treatment plan, and counseling patient) on [DATE]. Quality VTE Deep Vein Thrombosis/Pulmonary Embolism Present on Admission: No
[2025-01-19 20:00] VITALS: BP 166/49; PULSE 56; RESP 18; TEMP 36.3; O2SAT 94
[2025-01-20] MEDS: ACETAMINOPHEN 325 MG TABLET 650 MG PO (02:35)
[2025-01-20] MEDS: SODIUM CHLORIDE 0.9% 1,000 ML 75 ML IV (03:19)
[2025-01-20] MEDS: PIPERACILLIN/TAZO 3.375 GM in SODIUM CHLORIDE 0.9% 100 ML IV ×2 (03:19→11:38)
[2025-01-20 05:00] VITALS: BP 175/60; PULSE 60; RESP 18; TEMP 36.6; O2SAT 97
[2025-01-20 08:00] VITALS: BP 171/48; PULSE 58; RESP 12
--- NOTE | 2025-01-20 08:45 | OT.IP.EVAL ---
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 Pt states does not walk. Activities of Daily Living and IADL's Pt states able to get assist for ADL needs as needed especially for toileting, dressing and has help for showers. Prior Functional Level (Other details) Pt lives at [facility]. Social History Household Members caregiver Living Arrangements Assisted Living Home Environment Standard Height Toilet Home Equipment Grab Bars Near Toilet,Grab Bars In Shower M2 OT-IP Current Condition Start: 01/20/25 11:03 Freq: Status: Active Protocol: Document 01/20/25 08:45 [facility] (Rec: 01/20/25 11:17 [facility] Desktop) Occupational Therapy Current Condition Current Condition Evaluation Date 01/20/25 Treatment Diagnosis non healing left heel wound Diagnosis Onset Date 01/18/25 Weight Bearing Status Weight Bearing Status Weight Bear as Tolerated M3 OT- IP Subjective and Pain Start: 01/20/25 11:03 Freq: Status: Active Protocol: Document 01/20/25 08:45 [facility] (Rec: 01/20/25 11:17 [facility] Desktop) OT- Subjective Occupational Therapy Visit Type Type Initial Evaluation Visit Start Time 08:45 Visit Stop Time 09:20 Occupational Therapy Visit Comments Patient Comments Pt agreed to use the BSC. Patient/Caregiver Goals TO be able to walk again and use a 4ww. OT Pain Assessment Pain When Pain Assessed At Rest Pain Present Pain Present Denied Pain M4 OT- IP ADL's Start: 01/20/25 11:03 Freq: Status: Active Protocol: Document 01/20/25 08:45 [facility] (Rec: 01/20/25 11:17 [facility] Desktop) OT [id number] General Evaluation Self-Feeding Ability Independent OT ADL-Grooming Comments OT Grooming Comments Pt refused. OT ADL-Oral Care Comments Oral Care Comments Pt refused. OT ADL-Dressing General Eval Lower Body Dressing Ability Maximum Assistance Areas Needing Assistance Underpants/Brief,Socks Comments OT Dressing Comments Pt unable to reach to do her socks and brief at this time. OT ADL-Toileting General Evaluation Toileting Ability Moderate Assistance Comments OT Toileting Comments Pt not wanting OT present while urinating and doing hygiene needs. Pt needing assist to help don the brief over her feet and hips. OT ADL-Bathing Comments OT Bathing Comments Not performed. M5 OT- IP IADL's Start: 01/20/25 11:03 Freq: Status: Active Protocol: Document 01/20/25 08:45 [facility] (Rec: 01/20/25 11:17 [facility] Desktop) OT-Instrumental Activities of Daily Living Home Safety Awareness Awareness of Need for Assistance at Home Good Awareness Medication Management Medication Management Caregiver Administers Money Management Money Management Caregiver Provides Assistance Meal Preparation Meal Preparation Caregiver Provides Assist Resistance Welding Machine Operator Resistance Welding Machine Operator Caregiver Provides Assist M6 OT- IP Functional Cognition Start: 01/20/25 11:03 Freq: Status: Active Protocol: Document 01/20/25 08:45 [facility] (Rec: 01/20/25 11:17 [facility] Desktop) Cognitive Factors Limiting Selfcare Function Cognitive Ability Level of Alertness Alert Patient Orientation Name,Place,Situation Attention Span Ability Capable of Focused Attention Ability to Follow Commands Able to Follow One Step Commands Cognitive Comments Cognitive Assessment Comments Pt able to follow commands for ADL and mobility needs. OT- Vision and Hearing OT- Hearing Assessment OT- Hearing Assessment WFL OT- Vision Assessment Visual Acuity Glasses For Reading Vision Assessment Comments Pt states uses glasses for reading. Pt able to read the clock accurately. M7 OT- IP Mobility and Balance Start: 01/20/25 11:03 Freq: Status: Active Protocol: Document 01/20/25 08:45 [facility] (Rec: 01/20/25 11:17 [facility] Desktop) OT-Transfer Assessment Sit to and From Stand Sit to and from Stand Moderate Assistance,Maximum Assistance Transfers Transfer Ability Moderate Assistance Technique Transfer Destination Bedside Commode,Chair Transfer Technique Stand Step Pivot Devices Transfer Assistive Devices Gait Belt,Front Wheeled Walker Comments Mobility Comments Pt states normally will just reach out to her wc so able to transfer over. Use of FWW, MAX AX 1 to stand and MOD A to transfer to the BS. MODA to stand from the BSC and DEANN with FWW back to the recliner. OT- Balance Assessment Sitting Balance and Reactions Static Sitting Balance Ability Normal Dynamic Sitting Balance Ability Good Standing Balance and Reactions Static Standing Balance Ability Fair Dynamic Standing Balance Ability Poor M8 OT- IP Objective Assessments Start: 01/20/25 11:03 Freq: Status: Active Protocol: Document 01/20/25 08:45 [facility] (Rec: 01/20/25 11:17 [facility] Desktop) OT Gross Range of Motion Upper Extremity Range of Motion Assessment Bilaterally Impaired ROM Impairments Right shoulder 0-95, Left shoulder 0-100 OT Strength Upper Extremity Strength Assessment Bilaterally Impaired Comments Strength Comments RUE 3-/5 shoulder, elbow 4-/5 to hand 3+/5, Left UE 3+/5, 4- /5 to 3+/5. OT Sensation Assessment Comments Summary Comments Intact for light touch. M9 OT- IP Assessment and Plan Start: 01/20/25 11:03 Freq: Status: Active Protocol: Document 01/20/25 08:45 [facility] (Rec: 01/20/25 11:17 [facility] Desktop) OT Summary Assessment and Plan Potential Rehabilitation Potential Good Analytic Complexity at Evaluation Moderate Summary OT Impairments Range of Motion,Strength, Balance,Functional Mobility, Self-Feeding,Grooming,Dressing ,Toileting,Bathing,Toilet Transfers,Shower Transfers, Activity Tolerance Progress Towards Goals Slow Progress due to Medical Issues,Slow Progress due to Activity Tolerance Assessment Summary Pt MOD complexity and main barriers are decreased strength, activity tolerance, endurance, and now needing one person assist for ADL and mobility needs. Pt wants to be able to walk again but does not want to go to skilled rehab. Pt rather go home and have home health. Pt will benefit from increasing overall strength, endurance, and activity tolerance to be able to be more independent with her needs. Goals Self-Feeding Goal Independent Grooming Goal Independent Dressing Goal Minimal Assistance Toileting Goal Independent,Standby Assistance Bathing Goal Moderate Assistance Toilet Transfer Goal Standby Assistance Shower Transfer Goal Contact Guard Assistance Days to Meet Goals 15 Frequency of Treatment Other frequency 5x/week Treatment Plan OT Treatment Plan ADL Training,Functional Mobility,Patient/Family Education,Discharge Planning Discharge Recommendations OT Discharge Recommendations Home with / Assist Available,Home Health Transportation Needs at Discharge Wheelchair/Cabulance
[2025-01-20] MEDS: DULOXETINE 30 MG CAPSULE PO (08:48)
[2025-01-20] MEDS: INSULIN LISPRO 100 UNIT/ML 3ML VIAL SUBCUT ×2 (08:48→12:02)
[2025-01-20] MEDS: ATORVASTATIN 20 MG TABLET 80 MG PO (08:49)
[2025-01-20] MEDS: FERROUS SULFATE 325 MG TABLET PO (08:49)
[2025-01-20] MEDS: PANTOPRAZOLE DR 20 MG TABLET PO (08:49)
[2025-01-20] MEDS: lisinopriL 10 MG TABLET 5 MG PO (08:49)
[2025-01-20] MEDS: GABAPENTIN 100 MG CAPSULE PO (08:49)
--- NOTE | 2025-01-20 09:20 | OT.IP.EVAL ---
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 Pt states does not walk. Activities of Daily Living and IADL's Pt states able to get assist for ADL needs as needed especially for toileting, dressing and has help for showers. Prior Functional Level (Other details) Pt lives at [facility]. Social History Household Members caregiver Living Arrangements Assisted Living Home Environment Standard Height Toilet Home Equipment Grab Bars Near Toilet,Grab Bars In Shower M2 OT-IP Current Condition Start: 01/20/25 11:03 Freq: Status: Active Protocol: Document 01/20/25 08:45 [facility] (Rec: 01/20/25 11:17 [facility] Desktop) Occupational Therapy Current Condition Current Condition Evaluation Date 01/20/25 Treatment Diagnosis non healing left heel wound Diagnosis Onset Date 01/18/25 Weight Bearing Status Weight Bearing Status Weight Bear as Tolerated M3 OT- IP Subjective and Pain Start: 01/20/25 11:03 Freq: Status: Active Protocol: Document 01/20/25 08:45 [facility] (Rec: 01/20/25 11:17 [facility] Desktop) OT- Subjective Occupational Therapy Visit Type Type Initial Evaluation Visit Start Time 08:45 Visit Stop Time 09:20 Occupational Therapy Visit Comments Patient Comments Pt agreed to use the BSC. Patient/Caregiver Goals TO be able to walk again and use a 4ww. OT Pain Assessment Pain When Pain Assessed At Rest Pain Present Pain Present Denied Pain M4 OT- IP ADL's Start: 01/20/25 11:03 Freq: Status: Active Protocol: Document 01/20/25 08:45 [facility] (Rec: 01/20/25 11:17 [facility] Desktop) OT [id number] General Evaluation Self-Feeding Ability Independent OT ADL-Grooming Comments OT Grooming Comments Pt refused. OT ADL-Oral Care Comments Oral Care Comments Pt refused. OT ADL-Dressing General Eval Lower Body Dressing Ability Maximum Assistance Areas Needing Assistance Underpants/Brief,Socks Comments OT Dressing Comments Pt unable to reach to do her socks and brief at this time. OT ADL-Toileting General Evaluation Toileting Ability Moderate Assistance Comments OT Toileting Comments Pt not wanting OT present while urinating and doing hygiene needs. Pt needing assist to help don the brief over her feet and hips. OT ADL-Bathing Comments OT Bathing Comments Not performed. M5 OT- IP IADL's Start: 01/20/25 11:03 Freq: Status: Active Protocol: Document 01/20/25 08:45 [facility] (Rec: 01/20/25 11:17 [facility] Desktop) OT-Instrumental Activities of Daily Living Home Safety Awareness Awareness of Need for Assistance at Home Good Awareness Medication Management Medication Management Caregiver Administers Money Management Money Management Caregiver Provides Assistance Meal Preparation Meal Preparation Caregiver Provides Assist Machine Fancy Stitcher Machine Fancy Stitcher Caregiver Provides Assist M6 OT- IP Functional Cognition Start: 01/20/25 11:03 Freq: Status: Active Protocol: Document 01/20/25 08:45 [facility] (Rec: 01/20/25 11:17 [facility] Desktop) Cognitive Factors Limiting Selfcare Function Cognitive Ability Level of Alertness Alert Patient Orientation Name,Place,Situation Attention Span Ability Capable of Focused Attention Ability to Follow Commands Able to Follow One Step Commands Cognitive Comments Cognitive Assessment Comments Pt able to follow commands for ADL and mobility needs. OT- Vision and Hearing OT- Hearing Assessment OT- Hearing Assessment WFL OT- Vision Assessment Visual Acuity Glasses For Reading Vision Assessment Comments Pt states uses glasses for reading. Pt able to read the clock accurately. M7 OT- IP Mobility and Balance Start: 01/20/25 11:03 Freq: Status: Active Protocol: Document 01/20/25 08:45 [facility] (Rec: 01/20/25 11:17 [facility] Desktop) OT-Transfer Assessment Sit to and From Stand Sit to and from Stand Moderate Assistance,Maximum Assistance Transfers Transfer Ability Moderate Assistance Technique Transfer Destination Bedside Commode,Chair Transfer Technique Stand Step Pivot Devices Transfer Assistive Devices Gait Belt,Front Wheeled Walker Comments Mobility Comments Pt states normally will just reach out to her wc so able to transfer over. Use of FWW, MAX AX 1 to stand and MOD A to transfer to the BSC. MODA to stand from the BSC and DEANN with FWW back to the recliner. OT- Balance Assessment Sitting Balance and Reactions Static Sitting Balance Ability Normal Dynamic Sitting Balance Ability Good Standing Balance and Reactions Static Standing Balance Ability Fair Dynamic Standing Balance Ability Poor M8 OT- IP Objective Assessments Start: 01/20/25 11:03 Freq: Status: Active Protocol: Document 01/20/25 08:45 [facility] (Rec: 01/20/25 11:17 [facility] Desktop) OT Gross Range of Motion Upper Extremity Range of Motion Assessment Bilaterally Impaired ROM Impairments Right shoulder 0-95, Left shoulder 0-100 OT Strength Upper Extremity Strength Assessment Bilaterally Impaired Comments Strength Comments RUE 3-/5 shoulder, elbow 4-/5 to hand 3+/5, Left UE 3+/5, 4- /5 to 3+/5. OT Sensation Assessment Comments Summary Comments Intact for light touch. M9 OT- IP Assessment and Plan Start: 01/20/25 11:03 Freq: Status: Active Protocol: Document 01/20/25 08:45 [facility] (Rec: 01/20/25 11:17 [facility] Desktop) OT Summary Assessment and Plan Potential Rehabilitation Potential Good Analytic Complexity at Evaluation Moderate Summary OT Impairments Range of Motion,Strength, Balance,Functional Mobility, Self-Feeding,Grooming,Dressing ,Toileting,Bathing,Toilet Transfers,Shower Transfers, Activity Tolerance Progress Towards Goals Slow Progress due to Medical Issues,Slow Progress due to Activity Tolerance Assessment Summary Pt MOD complexity and main barriers are decreased strength, activity tolerance, endurance, and now needing one person assist for ADL and mobility needs. Pt wants to be able to walk again but does not want to go to skilled rehab. Pt rather go home and have home health. Pt will benefit from increasing overall strength, endurance, and activity tolerance to be able to be more independent with her needs.Pt will benefit from SNF if willing to go. Goals Self-Feeding Goal Independent Grooming Goal Independent Dressing Goal Minimal Assistance Toileting Goal Independent,Standby Assistance Bathing Goal Moderate Assistance Toilet Transfer Goal Standby Assistance Shower Transfer Goal Contact Guard Assistance Days to Meet Goals 15 Frequency of Treatment Other frequency 5x/week Treatment Plan OT Treatment Plan ADL Training,Functional Mobility,Patient/Family Education,Discharge Planning Discharge Recommendations OT Discharge Recommendations SNF ,Home with 24/7 Assist Available,Home Health Transportation Needs at Discharge Wheelchair/Cabulance
--- NOTE | 2025-01-20 10:05 | PT.IIE ---
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) Medical History (Last Reviewed 01/18/25 @ 17:38 by Flores Abraham PA-C) Coronary artery disease Hyperlipidemia Hypomagnesemia Non-healing wound Tobacco abuse Toe amputation status Type 1 diabetes mellitus Physical Therapy Inpatient Evaluation/Re-Eval M1 PT/OT-IP Prior Functional Status Start: 01/20/25 12:19 Freq: NEEDED Status: Active Protocol: Document 01/20/25 10:05 [facility] (Rec: 01/20/25 12:30 [facility] [id number]) Medical Review Prior Functional Status Medical History Reviewed Yes Communication able to make needs known Mobility and Gait pt is w/c bound but able to step transfer without AD mod I but stated that she asks for assistance if needed; pt lives at [facility] and has staff available to assist Activities of Daily Living and IADL's per OT note: Pt states able to get assist for ADL needs as needed especially for toileting, dressing and has help for showers. Social History Household Members caregiver Living Arrangements Assisted Living Number of Floors (Floors) One Floor Number of Stairs To Enter/Railing? pt lives at [facility]: staff assist when needed Home Environment Standard Height Toilet,Walk in Shower Home Equipment Manual Wheelchair,Shower Seat with Backrest,Hand Held Shower ,Grab Bars Near Toilet,Grab Bars In Shower M2 PT-IP Current Condition Start: 01/20/25 12:19 Freq: NEEDED Status: Active Protocol: Document 01/20/25 10:05 [facility] (Rec: 01/20/25 12:30 [facility] [id number]) Physical Therapy Current Condition Current Condition Evaluation Date 01/20/25 Treatment Diagnosis L great toe osteomyelitis; L heel wound; generalized weakness Onset Date 01/18/25 M3 PT-IP Subjective Start: 01/20/25 12:19 Freq: NEEDED Status: Active Protocol: Document 01/20/25 10:05 [facility] (Rec: 01/20/25 12:30 AB [id number]) Subjective Physical Therapy Visit Type Type Initial Evaluation Visit Start Time 10:05 Visit Stop Time 10:25 Number of ORACLE DBA Visits 0 Physical Therapy Visit Comments Patient Comments agreeable to do PT Therapy Pain Assessment Pain Present Pain Present Denied Pain M4 PT-IP Mobility and Gait Start: 01/20/25 12:19 Freq: NEEDED Status: Active Protocol: Document 01/20/25 10:05 [facility] (Rec: 01/20/25 12:30 AB [id number]) PT-Bed Mobility Assessment Supine to Sit Supine to Sit Standby Assistance Sit to Supine Sit to Supine Standby Assistance PT-Transfer Assessment Sit to and From Stand Sit to and from Stand Contact Guard Assistance, Maximum Assistance,1 Person Assistance,Use of Upper Extremities Equipment Transfer Assistive Device None,Gait Belt Orthotic/Prosthetic Devices or Brace: No Transfers Transfer Destination Bed,Wheelchair Transfer Technique Stand Step Pivot Transfer Ability Level of Assist Contact Guard Assistance, Minimal Assistance,1 Person Assistance,Use of Upper Extremities Comments Mobility Comments pt sitting on the chair and agreeable to do PT. obtained PLOF and home set up. sit to stand from chair max A and min A for step transfer to higher bed surface. pt completed sit <>supine SBA. completed step transfer bed to w/c CGA. positioned pt on the chair. call light and table placed within reach. PT-Balance Assessment Sitting Balance and Reactions Static Sitting Balance Ability Good Dynamic Sitting Balance Ability Good M5 PT-IP Objective Assessments Start: 01/20/25 12:19 Freq: NEEDED Status: Active Protocol: Document 01/20/25 10:05 [facility] (Rec: 01/20/25 12:30 AB [id number]) Orientation Orientation/Cognition Level of Alertness Alert Orientation Place,Situation Language Function Ability Hard of Hearing Safety Awareness Decreased Safety Awareness Memory Description Short Term Impaired Gross Range of Motion Lower Extremity ROM Assessment Within Functional Limits Strength Lower Extremity Strength Assessment Within Functional Limits Coordination Assessment Gross Coordination Gross Coordination WNL Sensation Assessment Sensation Gross Sensation Right LE Impaired,Left LE Impaired Sensation Description Numbness Muscle Tone Muscle Tone WNL Yes M6 PT-IP Treatment Start: 01/20/25 12:19 Freq: NEEDED Status: Active Protocol: Document 01/20/25 10:05 [facility] (Rec: 01/20/25 12:30 AB [id number]) Physical Therapy Treatment Education Education Provided Safety M7 PT-IP Assessment and Plan Start: 01/20/25 12:19 Freq: NEEDED Status: Active Protocol: Document 01/20/25 10:05 [facility] (Rec: 01/20/25 12:30 AB [id number]) PT Summary Assessment and Plan Potential Rehabilitation Potential Fair Status of Condition at Evaluation Evolving Summary Impairments Pain,ROM,Strength,Balance, Coordination,Sensation,Tone, Cognition,Bed Mobility, Transfers,Gait,Activity Tolerance Assessment Summary pt is a 64 y/o F who is admitted for L great toe osteomyelitis and L heel wound . pt requiring max A for sit to stand from low chair and min A to transfer from chair to bed but able to step transfer from bed to chair step transfer using chair's armrest for support CGA. pt lives at [facility] and has staff to assist her if needed. pt may go back to [facility]. Goals Bed Mobility Goal Independent Transfer Goal Independent Days to Meet Goals 5 Frequency of Treatment Frequency Of Treatment Once a Day Treatment Plan Physical Therapy Treatment Plan Bed Mobility Training,Transfer Training,Gait Training, Therapeutic Exercise,Balance Retraining,Discharge Planning, Hot or Cold Pack,Neuromuscular Re-ed,Coordination Retraining ,Manual Therapy Precautions Other Precautions falls; (+) MRSA nares Weight Bearing Status Weight Bearing Status Weight Bear as Tolerated Allowed Weight Bearing Amount (enter % LLE WBAT or #) (%) Recommendations To Nursing Amount of Assist Needed 1 Person Assist Discharge Recommendations PT Discharge Recommendations Home with 24/ Assist Available,Home Health Transportation Needs at Discharge Wheelchair/Cabulance
[2025-01-20 11:31] LABS: BUN Creatinine Ratio 16.3 (6-22); Blood Urea Nitrogen 14 mg/dL (7-17); Calcium 9.1 mg/dL (8.4-10.2); Carbon Dioxide 21 mmol/L (22-32); Chloride 110 mmol/L (98-107); Estimated Glomerular Filt Rate > 60 mL/min (>60); Glucose 201 mg/dL (70-99); Potassium 5.2 mmol/L (3.4-5.1); Sodium 135 mmol/L (137-145)
[2025-01-20 11:32] LABS: Vancomycin Trough 14.2 ug/mL (10-20)
[2025-01-20 11:33] LABS: HEMOLYSIS 130 (0-50)
[2025-01-20] MEDS: VANCOMYCIN HCL 750 MG in SODIUM CHLORIDE 0.9% 250 ML 250 MG IV ×2 (11:38)
--- NOTE | 2025-01-20 11:53 | CM.DPNOTE ---
Addendum entered by VALERIY Perkins 01/20/25 14:13: ADD: Spoke to Radha at who explains that patient does not appear to have the skilled need for SNF. Placed call to [facility], spoke with Karely Laurent [phone], online marketing director, who reports that patient can return today. guard supervisor scheduled for 4pm. ADE Malhotra giving nurse report directly to Karely- including dressings placed on heel ulcer. Plan: Discharge back to [facility] today via facility van, meat pickler at 4pm. Discharge on po abx. Will request that [facility] work on scheduling follow up with podiatry. Original Note: DCP Cont Dr Walsh recommending patient discharge to SNF before return to [facility] and patient agrees. Preference for remaining in [place] at [facility]. Emailed referral to Radha at for review. Patient has [facility]; awaiting feedback from . Completed hospital exempt [facility], needs provider signature. [facility] team following closely. ANAID
[2025-01-20] MEDS: VANCOMYCIN TROUGH 1 REQUEST MISC (12:04)
--- NOTE | 2025-01-20 12:30 | PM.PN.1 ---
Subjective Subjective Interval history: 64 F admitted with possible osteo of L 1st toe distally, seen by orthopedic surgery, and no acute surgical management in recommended at this time. It is still not entirely clear if this represents an acute or chronic osteo of her L 1st toe. Patient denies pain at this time. No fever, chills, nausea, vomiting. She did state preference for SNF rehab if able / authorized by insurance. Exam Vital Signs (past 8 hours): - 01/20/25 05:00 01/20/25 08:00 Temperature 97.9 F Pulse Rate 60 58 L Respiratory Rate 18 12 Blood Pressure 175/60 H 171/48 H Pulse Oximetry 97 Oxygen Flow Rate 0 Oxygen Delivery Method Room Air Oxygen Flow Rate 0 Narrative Exam Narrative: Physical Exam: GENERAL: The patient is not in any acute distressed. Awake and alert. HEENT: Nonicteric sclerae, PERRLA, EOMI. Oropharynx clear. Moist mucous membranes. Conjunctivae appear well perfused. HEART: Regular rate and rhythm without murmurs. No lower extremities edema. LUNGS: Clear to auscultation bilaterally. No wheezing, crackles or rhonchi ABDOMEN: Soft, positive bowel sounds, nontender. SKIN: Wound noted in left heal and erythema and wound on left 1st great toe. Otherwise No rash, no excessive bruising, petechiae, or purpura. NEUROLOGIC: AxO x 3. Cranial nerves II-XII intact without motor/sensory deficit. Objective Labs 01/19/25 05:38 01/20/25 10:41 Labs: Laboratory Results - last 24 hr 01/20/25 10:41 Sodium 135 L Potassium 5.2 H Chloride 110 H Carbon Dioxide 21 L BUN 14 Creatinine 0.86 Estimated GFR > 60 BUN/Creatinine Ratio 16.3 Glucose 201 H D Calcium 9.1 Vancomycin Trough 14.2 PFSH Medical History Coronary artery disease Hypomagnesemia Tobacco abuse Hyperlipidemia Type 1 diabetes mellitus Non-healing wound Toe amputation status Surgical History History of cataract removal with insertion of prosthetic lens (~2003) History of cataract removal with insertion of prosthetic lens (~1993) History of third molar tooth extraction History of tonsillectomy 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) Family History Brother Age: 70 Alcoholism Father Alcohol abuse Grandfather Alcoholism Heart attack Family/Other Breast cancer Mother Multiple sclerosis Family/Other Heroin abuse Family/Other Heroin abuse Social History household members: caregiver Smoking Status: Current every day smoker alcohol intake: former Assessment & Plan Assessment & Plan narrative: Osteomyelitis of the left first great toe. Presumed chronic with acute skin and soft tissue infection. - unclear at this time based on documentation and previous history if her left 1st toe represents an acute or chronic osteomyelitis at this time. ESR is only mildly elevated. No leukocytosis. - At this time, after discussion with orthopedics provider favor treatment of oral antibiotics for an acute skin and soft tissue infection in the setting of presumed chronic 1st toe osteo. - continue heel dressing, outpatient podiatry follow up recommended. - continue zosyn and vancomycin at this time. Narrow to oral antibiotics on discharge, no culture data thus far. Consider 10 days total antibiotic course for soft tissue infection. Diabetic foot ulcer of the left heel - continue current wound dressing - WBAT - outpatient podiatry follow up. Insulin-dependent diabetes. Continue home Subcu insulin and monitor glucose. Hyperlipidemia. Resume home statin. Depression. Resume Home Cymbalta. Neuropathy. Resume home gabapentin. Hypertension. Resume home lisinopril GERD. Resume home PPI. DVT prophylaxis SCDs for now due to possible surgical management of osteomyelitis in the morning. CODE STATUS full code. Disposition - [facility] vs SNF pending therapy evaluations and insurance authorizations. Can discharge on PO antibiotics. Time-Based Coding :: [TOTAL MINUTES] spent with patient and on the chart (including review of chart, obtaining history, exam, reviewing outside data, placing orders, documenting exam and treatment plan, and counseling patient) on [DATE]. Quality VTE Deep Vein Thrombosis/Pulmonary Embolism Present on Admission: No
--- NOTE | 2025-01-20 12:35 | PC.NURSE ---
Patient withdrawn, quiet but is pleasant and cooperative. Dressing to l.heel is cdi, she also has an area on her toe that resembles a blood blister. Patient is a 2 person assist with ambulating and transferring to the [facility]. She has refused her gabapentin in the mornings and at 1500 as she states that it makes her too sleepy. Patient sitting up in chair and just finished lunch.
[2025-01-20 13:57] LABS: Vancomycin Peak 26.8 ug/mL (20-40)
--- NOTE | 2025-01-20 14:26 | PM.DS.1 ---
History of Present Illness History of Present Illness Date Patient Seen: 01/20/25 Time Patient Seen: 14:26 Chief complaint: Ulcer on L heel Narrative: Per admitting provider, 64-year-old female with past medical history of depression, coronary artery disease status post CABG, neuropathy, insulin-dependent diabetes, hypertension, hyperlipidemia and GERD presents with nonhealing left heel wound. Of note per the patient's report, the patient has been dealing with his chronic left heel wound for the last few months. The patient was sent here from [facility] due to concern for acute infection of his left heel wound. Also there was noted that the left great toe became very red and swollen today per the staff. Her care facility. However over the last 1 month the patient has not seen wound care since the patient was transferred to a new assisted living. Of note the patient also had her left second toe amputated many years ago due to similar infection. At baseline the patient probably gets around in a wheelchair. Otherwise the patient denies any recent fever, chills, nausea, vomiting, diarrhea, shortness of breath or chest pain. In our emergency room, the patient was hemodynamically stable without signs of sepsis. Labs were relatively benign. X-ray shows left first distal phalanx concerning for osteomyelitis. CT of the left foot shows similar findings in which it is concerning for osteomyelitis with recommendation to correlate with probe to bone test for osteomyelitis. Orthopedic surgeon was consulted and recommended admission for IV antibiotic and he will consult on the patient. Of note the patient was given IV vancomycin and Zosyn. Discharge Providers Provider Date of admission: 01/18/25 20:10 Discharge Date: 01/20/25 Consults: 01/18/25 19:19 Consult to Occupational Therapy Evaluate & Treat Comment: Physician Instructions: Evaluate and treat Consult to Physical Therapy Evaluate & Treat Comment: Physician Instructions: Evaluate and Treat 01/19/25 11:55 Consult to Orthopedic Surgery Routine Comment: Consulting Provider: Kofi King Reason for consultation: L 1st toe osteo ?, poss bone biopsy Has provider been notified: Yes Discharge provider: Seb Walsh DO Summary Hospital Course Discharge Diagnosis: Osteomyelitis of the left first great toe. Presumed chronic with acute skin and soft tissue infection. Present on admission. Diabetic foot ulcer of the left heel, present on admission Insulin-dependent diabetes, chronic Hyperlipidemia. Depression. Neuropathy. Hypertension. GERD. Hospital Course: This is a 64 year old female with PMH of insulin dependent DM, prior foot infections, HTN, HLD who presented with worsening Left foot wounds at her assisted living. Initially CT scan showed possible osteomyelitis of L 1st toe. Given her presentation and prior foot ulcerations it was not easily apparent if this indicated an acute or chronic osteomyelitis. ESR was minimally elevated in the 20s and she had no fever or leukocytosis. After discussion with orthopedics, no surgical interventions were recommended as both 1st toe and heel wounds appeared to be more superficial infections and her osteomyelitis on her L 1st foot is likely chronic. She will continue on another week of cephalexin and doxycycline for a skin and soft tissue infection of her left foot after discharge. Orthopedic surgeon also recommended outpatient follow up with podiatry for ongoing management of L heel ulceration. After improvement in the appearance of her wounds after a couple of days of IV vancomycin and zosyn, she was discharged to her previous assisted living facility on oral antibiotics noted above. Continue as needed dressing changes to her left heel, and she may weight bear as tolerated with the dressing on. No other changes to her home medications are otherwise recommended at the time of discharge. Time Spent with Patient Time spent: Greater than 30 minutes Exam Vital Signs (past 8 hours): - 01/20/25 08:00 Pulse Rate 58 L Respiratory Rate 12 Blood Pressure 171/48 H Oxygen Delivery Method Room Air Oxygen Flow Rate 0 Narrative Exam Narrative: Physical Exam: GENERAL: The patient is not in any acute distressed. Awake and alert. HEENT: Nonicteric sclerae, PERRLA, EOMI. Oropharynx clear. Moist mucous membranes. Conjunctivae appear well perfused. HEART: Regular rate and rhythm without murmurs. No lower extremities edema. LUNGS: Clear to auscultation bilaterally. No wheezing, crackles or rhonchi ABDOMEN: Soft, positive bowel sounds, nontender. SKIN: Wound noted in left heal and erythema and wound on left 1st great toe. Otherwise No rash, no excessive bruising, petechiae, or purpura. NEUROLOGIC: AxO x 3. Cranial nerves II-XII intact without motor/sensory deficit. Objective Labs 01/19/25 05:38 01/20/25 10:41 Labs: Laboratory Results - last 24 hr 01/20/25 01/20/25 10:41 13:15 Sodium 135 L Potassium 5.2 H Chloride 110 H Carbon Dioxide 21 L BUN 14 Creatinine 0.86 Estimated GFR > 60 BUN/Creatinine Ratio 16.3 Glucose 201 H D Calcium 9.1 Vancomycin Peak 26.8 Vancomycin Trough 14.2 PFSH Medical History Coronary artery disease Hypomagnesemia Tobacco abuse Hyperlipidemia Type 1 diabetes mellitus Non-healing wound Toe amputation status Surgical History History of cataract removal with insertion of prosthetic lens (~2003) History of cataract removal with insertion of prosthetic lens (~1993) History of third molar tooth extraction History of tonsillectomy 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) Family History Brother Age: 70 Alcoholism Father Alcohol abuse Grandfather Alcoholism Heart attack Family/Other Breast cancer Mother Multiple sclerosis Family/Other Heroin abuse Family/Other Heroin abuse Social History household members: caregiver Smoking Status: Current every day smoker alcohol intake: former Discharge Plan Discharge Plan Patient Disposition: Assisted Living Transfer to: [facility] Provider Discharge Comment: 64 F admitted for concerning L 1st toe and heel ulcer. Evulated by orthopedic surgery, after review of imaging and presentation likely represents skin and soft tissue infection with probable chronic 1st toe osteomyelitis. Recommending outpatient podiatry. Continue dressing to heel wound for now, and another week of oral antibiotics after discharge. Recommend PT/OT at assisted living. Antibiotics to continue for another 7 days after discharge. Discharge orders & Medications Discharge Orders: Discharge (Order); Ordered 01/20/25 Ordered By: Seb Walsh Prescriptions: New pantoprazole 20 mg Tablet,Delayed Release (Dr/Ec) 20 mg PO BID 30 Days Qty: 60 0RF cephalexin 500 mg capsule 500 mg PO QID 7 Days Qty: 28 0RF doxycycline hyclate 100 mg tablet 100 mg PO BID 7 Days Qty: 14 0RF Continued insulin lispro [Humalog U-100 Insulin] 100 unit/mL solution See Rx Instructions Continuous Subcutaneous Infusion SEE INSTRUCTIONS Qty: 90 1RF Dose Instruction: use as directed via insulin pump (80-100U daily) Continuous Subcutaneous Infusion SEE INSTRUCTIONS; Rx Instructions: use as directed via insulin pump (80-100U daily) Continuous Subcutaneous Infusion SEE INSTRUCTIONS; duloxetine [Cymbalta] 30 mg capsule,delayed release(DR/EC) 30 mg PO BID Qty: 180 3RF lisinopril 10 mg tablet 5 mg PO Q DAY Qty: 90 3RF Rx Instructions: Take 1/2 tab (5mg) daily for hypertension, goal 100-130/50-80 rosuvastatin [Crestor] 40 mg tablet 40 mg PO DAILY Qty: 90 3RF Rx Instructions: Take 1 tablet daily for elevated cholesterol. citalopram 20 mg tablet 20 mg PO DAILY gabapentin 300 mg capsule 300 mg PO DAILY insulin glargine-yfgn 100 unit/mL (3 mL) insulin pen 25 unit SUBCUT QAM Patient Comments: [NO ORIGINAL SIG] insulin glargine-yfgn 100 unit/mL (3 mL) insulin pen 20 unit SUBCUT QPM Patient Comments: [NO ORIGINAL SIG] Discharge Health Status Multidrug resistant organism: No MDRO Precautions: [place] Diet/Activity/Treatments Diet: Diet as Tolerated and Carb-consistent/Diabetic Liquid consistency: Normal/Thin Food texture: Regular Activity: WBAT with protective dressing to L heel. [facility] Rehab type: Physical therapy and Occupational therapy Visit Report/Discharge Packet Stand Alone Forms: Patient Portal/API, Stroke Signs & Symptoms Quality VTE Deep Vein Thrombosis/Pulmonary Embolism Present on Admission: No
--- NOTE | 2025-01-20 17:29 | PC.NURSE ---
Pt discharged to [facility] at 1705, escorted off floor in wheelchair accompanied by facility transport designee. IV removed, discharge teaching sent with discharge packet, report called to [facility] by ADE Malhotra. Patient left the floor with all belongings.
== END 2025-01-20 17:05 | DRG 344 ==
LOC: ED 15:42 → AC 18:53
PROVIDERS: Admitting Provider Internal Medicine; Emergency Provider Physician Assistant; Referring Provider Physician Assistant; Visit Provider Internal Medicine
DX: M86.672 Other chronic osteomyelitis, left ankle and foot (principal); I25.10 Atherosclerotic heart disease of native coronary artery without angina pectoris; F17.200 Nicotine dependence, unspecified, uncomplicated; E78.5 Hyperlipidemia, unspecified; F32.A Depression, unspecified; I10 Essential (primary) hypertension; K21.9 Gastro-esophageal reflux disease without esophagitis; E10.40 Type 1 diabetes mellitus with diabetic neuropathy, unspecified; E10.621 Type 1 diabetes mellitus with foot ulcer; L97.429 Non-pressure chronic ulcer of left heel and midfoot with unspecified severity; L97.529 Non-pressure chronic ulcer of other part of left foot with unspecified severity; Z95.1 Presence of aortocoronary bypass graft
CPT/HCPCS: 36415; 73630; 73701; 80048; 80053; 80202; 82962; 83605; 85025; 85651; 86140; 87040; 87797; 97161; 97166; 97530; 99233; 99283; 99284; J1815; J2543; J3370; Q9967

== ENCOUNTER 2025-01-24 17:50 | Emergency (ER) | payer OTHER, SELFPAY ==
[2024-01-04 15:55] VITALS: PULSE 110; RESP 19; O2SAT 95
[2025-01-24] VITALS (11 sets, daily range): BP systolic 154–163; BP diastolic 66–71; PULSE 74–85; RESP 12–22; TEMP 36.4; O2SAT 94–96; BMI 27.4
[2025-01-24] MEDS: SODIUM CHLORIDE 0.9% 1,000 ML 1000 ML IV ×2 (18:47→22:15)
[2025-01-24] MEDS: ONDANSETRON 4 MG/2 ML INJ IV (18:47)
[2025-01-24 18:59] LABS: Add Manual Diff / Slide Review NO; Basophils Absolute Auto 100 /uL (0-100); Basophils Percent Auto 0.7 % (0-2); Eosinophils Absolute Auto 0 /uL (0-450); Eosinophils Percent Auto 0.2 % (2-4); Hematocrit 30.5 % (36-46); Hemoglobin 10.2 g/dL (12.0-16.0); Lymphocytes Absolute Auto 2000 /uL (1100-4500); Lymphocytes Percent Auto 17.9 % (25-40); Mean Corpuscular HGB Conc 33.4 % (30-36); Mean Corpuscular Hemoglobin 29.4 PG (26-34); Monocytes Absolute Auto 800 /uL (0-900); Monocytes Percent Auto 7.2 % (3-14); Neutrophils Absolute Auto 8200 /uL (1500-7000); Platelet Count 258 X10^3/uL (150-400); Red Blood Cell Count 3.46 X10^6/uL (4.0-5.2); White Blood Cell Count 11.1 X10^3/uL (4.5-11.0)
[2025-01-24 19:03] LABS: Alanine Aminotransferase 18 IU/L (<35); Albumin 3.5 g/dL (3.5-5.0); Albumin Globulin Ratio 1.3 (1.0-2.8); Alkaline Phosphatase 77 U/L (38-126); Aspartate Aminotransferase 20 IU/L (14-36); BUN Creatinine Ratio 27.6 (6-22); Bilirubin Total 0.5 mg/dL (0.2-1.3); Blood Urea Nitrogen 32 mg/dL (7-17); Calcium 9.4 mg/dL (8.4-10.2); Carbon Dioxide 16 mmol/L (22-32); Chloride 109 mmol/L (98-107); Estimated Glomerular Filt Rate 53 mL/min (>60); Globulin 2.6 g/dL (1.7-4.1); Glucose 378 mg/dL (70-99); HEMOLYSIS 16 (0-50); Lipase 13 U/L (23-300); Magnesium 1.7 mg/dL (1.6-2.3); Potassium 4.6 mmol/L (3.4-5.1); Sodium 137 mmol/L (137-145); Total Protein 6.1 g/dL (6.3-8.2)
[2025-01-24 19:04] LABS: Lactate (Lactic Acid) 1.3 mmol/L (0.7-2.1)
[2025-01-24 19:14] LABS: Base Excess VBG -4.3 mmol/L (0-4); HCO3 VBG 21 mmol/L (24-28); Oxygen Saturation VBG 81 % (70-75); PCO2 VBG 36.8 mmHg (45-50); PO2 VBG 47 mmHg (35-45); Total CO2 VBG 20 mmol/L (24-29); pH VBG 7.36 (7.33-7.43)
--- NOTE | 2025-01-24 20:18 | ED_ITS ---
HPI - General Adult General Chief complaint: Diabetic Problem Stated complaint: N/V, wound on left foot Time Seen by Provider: 01/24/25 18:33 Mode of arrival: Ambulatory History of Present Illness HPI narrative: 64-year-old female past medical history of diabetes, hyperlipidemia, hypertension, presenting from home via EMS for evaluation of nausea and vomiting she states that she has been having increased blood glucose associated with no nausea and vomiting. She denies any other symptoms headache visual disturbances chest pain shortness breath fever chills nausea vomiting abdominal pain or any other GI/ symptoms. Related Data Home Medications Medication Instructions Recorded Confirmed citalopram 20 mg tablet 20 mg PO DAILY 01/19/25 01/19/25 gabapentin 300 mg capsule 300 mg PO DAILY 01/19/25 01/19/25 insulin glargine-yfgn 100 unit/mL 20 unit SUBCUT QPM 01/19/25 01/19/25 (3 mL) subcutaneous pen insulin glargine-yfgn 100 unit/mL 25 unit SUBCUT QAM 01/19/25 01/19/25 (3 mL) subcutaneous pen Previous Rx's Medication Instructions Recorded insulin lispro 100 unit/mL See Rx Instructions continuous 04/27/20 subcutaneous solution (Humalog subcutaneous infusion SEE U-100 Insulin) INSTRUCTIONS #90 days duloxetine 30 mg capsule,delayed 30 mg PO BID #180 caps 08/29/21 release (Cymbalta) lisinopril 10 mg tablet 5 mg (1/2 x 10 mg) PO Q DAY #90 08/29/21 tabs rosuvastatin 40 mg tablet (Crestor) 40 mg PO DAILY #90 tabs 08/29/21 cephalexin 500 mg tablet 500 mg PO QID 7 days #28 tabs 01/20/25 doxycycline hyclate 100 mg tablet 100 mg PO BID 7 days #14 tabs 01/20/25 pantoprazole 20 mg tablet,delayed 20 mg PO BID 30 days #60 tabs 01/20/25 release ondansetron 4 mg disintegrating 4 mg PO Q8H PRN nausea and 01/25/25 tablet vomiting 1 week #21 tabs Allergies Allergy/AdvReac Type Severity Reaction Status Date / Time No Known Drug Allergies Allergy Verified 01/18/25 13:47 Review of Systems Review of Systems Narrative: General: Denies fever, chills, weight loss HEENT: Denies headache, eye drainage, eye irritation, head trauma, sore throat, voice change Cardiovascular: Denies any chest pain, palpitations, tachycardia Respiratory: Denies any shortness of breath, cough, wheeze, stridor GI/: Positive nausea and vomiting Denies any abdominal pain,diarrhea, bright red blood per rectum, melanotic stools, urinary frequency, urinary retention, dysuria, hematuria MSK: Denies any joint pain, muscle pains, swelling Skin: Denies any rashes, lesions, discoloration Neuro: Denies any headache, lightheadedness, dizziness, fainting, weakness Psych: Denies SI/HI Patient History Medical History Coronary artery disease Hypomagnesemia Tobacco abuse Hyperlipidemia Type 1 diabetes mellitus Non-healing wound Toe amputation status Surgical History History of cataract removal with insertion of prosthetic lens (~2003) History of cataract removal with insertion of prosthetic lens (~1993) History of third molar tooth extraction History of tonsillectomy 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) Family History Brother Age: 70 Alcoholism Father Alcohol abuse Grandfather Alcoholism Heart attack Family/Other Breast cancer Mother Multiple sclerosis Family/Other Heroin abuse Family/Other Heroin abuse Social History household members: caregiver Smoking Status: Current every day smoker alcohol intake: former Smoking Status: Current every day smoker Exam Narrative Exam Narrative: General: Cooperative, well-developed, not in acute distress HEENT: Normocephalic, atraumatic, PERRLA, normal sclera, eyelids normal Neck: Active full range of motion, atraumatic Chest: Normal to inspection, negative crepitus, no overlying erythema ecchymosis Respiratory: Normal respiratory effort, not in acute respiratory distress, clear to auscultation bilaterally negative cough, wheeze, tachypnea, rhonchi, rales Cardiology: Regular rate rhythm negative gallop, murmur, rubs GI/: No tenderness to palpation, soft, non rigid, normal to inspection, exam deferred MSK: Full active range of motion in all 4 extremities, atraumatic, no tenderness to palpation of any bony prominences Skin: No rashes or lesions noted Neuro: Alert awake oriented x3, moves all 4 extremities spontaneously, cranial nerves intact, able to answer all questions appropriately follows commands appropriately Psych: Cooperative, negative suicidal or homicidal ideations Initial Vital Signs Initial Vital Signs: Vital Signs Temperature 97.6 F 01/24/25 18:00 Pulse Rate 74 01/24/25 18:00 Respiratory Rate 22 01/24/25 18:00 Blood Pressure 154/66 H 01/24/25 18:00 Pulse Oximetry 95 01/24/25 18:00 Oxygen Delivery Method Room Air 01/24/25 18:00 Course Orders Ordered: ED Orders 01/24/25 18:13 Complete Blood Count AUTO DIFF Stat Comprehensive Metabolic Panel Stat Lactate (Lactic Acid) Stat Lipase Stat MAG [Magnesium] Stat 01/24/25 18:33 VBG [Venous Blood Gas] STAT 01/24/25 18:59 Covid-19 + FLU A/B + RSV - PCR Stat 01/24/25 19:09 Venous Blood Gas Routine 01/24/25 22:45 CMP [Comprehensive Metabolic Panel] Stat 01/24/25 23:45 Urine Microscopic Stat Discontinued Medications Sodium Chloride (Normal Saline 0.9%) 1,000 mls @ 1,000 mls/hr IV BOLUS ONE Stop: 01/24/25 19:32 Last Infusion: 01/24/25 22:14 Dose: Infused Documented By: Admin: 01/24/25 18:47 Dose: 1,000 mls/hr Documented By: FARZANEH Sodium Chloride (Normal Saline 0.9%) 1,000 mls @ 1,000 mls/hr IV BOLUS ONE Stop: 01/24/25 22:55 Last Admin: 01/24/25 22:15 Dose: 1,000 mls/hr Documented By: CONCETTA Insulin Human Regular (Insulin Regular 100 Unit/Ml 3 Ml Vial) 10 unit SUBCUT NOW ONE Stop: 01/24/25 21:57 Last Admin: 01/24/25 22:10 Dose: 10 unit Documented By: CONCETTA Co-signed By: HARPREET Ondansetron HCl (Ondansetron 4 Mg/2 Ml Inj) 4 mg IV NOW ONE Stop: 01/24/25 18:34 Last Admin: 01/24/25 18:47 Dose: 4 mg Documented By: FARZANEH Vital Signs Vital signs: Vital Signs - 8 hr 01/24/25 18:00 01/24/25 19:32 01/24/25 19:59 Temperature 97.6 F Pulse Rate 74 83 83 Respiratory Rate 22 16 13 Blood Pressure 154/66 H Pulse Oximetry 95 96 96 Oxygen Delivery Method Room Air 01/24/25 19:59 01/24/25 20:00 01/24/25 20:00 Temperature Pulse Rate 82 Respiratory Rate 19 Blood Pressure 159/71 H 158/67 H Pulse Oximetry 96 Oxygen Delivery Method Room Air 01/24/25 20:30 01/24/25 20:30 01/24/25 21:00 Temperature Pulse Rate 85 81 Respiratory Rate 16 15 Blood Pressure 160/68 H Pulse Oximetry 94 94 Oxygen Delivery Method 01/24/25 21:00 01/24/25 21:30 01/24/25 21:30 Temperature Pulse Rate 80 Respiratory Rate 15 Blood Pressure 157/69 H 163/70 H Pulse Oximetry 94 Oxygen Delivery Method 01/24/25 22:00 01/24/25 22:00 Temperature Pulse Rate 79 Respiratory Rate 14 Blood Pressure 161/70 H Pulse Oximetry 95 Oxygen Delivery Method Medical Decision Making Differential Diagnosis Differential Diagnosis: Electrolyte abnormality, hyperglycemia, DKA, UTI Lab Data 01/24/25 18:13 01/24/25 22:45 Labs: Lab Results 01/24/25 01/24/25 01/24/25 Range/Units 18:13 18:59 19:09 WBC 11.1 H (4.5-11.0) X10^3/uL RBC 3.46 L (4.0-5.2) X10^6/uL Hgb 10.2 L (12.0-16.0) g/dL Hct 30.5 L (36-46) % MCV 88.0 (80-100) fL MCH 29.4 (26-34) PG MCHC 33.4 (30-36) % RDW 14.0 (11.6-14.8) % Plt Count 258 (150-400) X10^3/uL Neut % (Auto) 74.0 (50-75) % Lymph % (Auto) 17.9 L (25-40) % [place] % (Auto) 7.2 (3-14) % Eos % (Auto) 0.2 L (2-4) % Baso % (Auto) 0.7 (0-2) % Neut # (Auto) 8200 H (7730-3838) /uL Lymph # (Auto) 2000 (9082-1815) /uL [place] # (Auto) 800 (0-900) /uL Eos # (Auto) 0 (0-450) /uL Baso # (Auto) 100 (0-100) /uL VBG pH 7.36 (7.33-7.43) VBG pCO2 36.8 L (45-50) mmHg VBG pO2 47 H (35-45) mmHg VBG HCO3 21 L (24-28) mmol/L VBG Total CO2 20 L (24-29) mmol/L VBG O2 Saturation 81 H (70-75) % VBG Base Excess -4.3 L (0-4) mmol/L Sodium 137 (137-145) mmol/L Potassium 4.6 (3.4-5.1) mmol/L Chloride 109 H (98-107) mmol/L Carbon Dioxide 16 L (22-32) mmol/L BUN 32 H (7-17) mg/dL Creatinine 1.16 H (0.52-1.04) mg/dL Estimated GFR 53 L (>60) mL/min BUN/Creatinine Ratio 27.6 H (6-22) Glucose 378 H D (70-99) mg/dL Lactate 1.3 (0.7-2.1) mmol/L Calcium 9.4 (8.4-10.2) mg/dL Magnesium 1.7 (1.6-2.3) mg/dL Total Bilirubin 0.5 (0.2-1.3) mg/dL AST 20 (14-36) IU/L ALT 18 (<35) IU/L Alkaline Phosphatase 77 (38-126) U/L Total Protein 6.1 L (6.3-8.2) g/dL Albumin 3.5 (3.5-5.0) g/dL Globulin 2.6 (1.7-4.1) g/dL Albumin/Globulin Ratio 1.3 (1.0-2.8) Lipase 13 L (23-300) U/L SARS-CoV-2 (PCR) Negative (Negative) Influenza A (RT-PCR) Flu a negative (NEGATIVE) Influenza B (RT-PCR) Flu b negative (NEGATIVE) RSV (PCR) Negative (Negative) 01/24/25 Range/Units 22:45 WBC (4.5-11.0) X10^3/uL RBC (4.0-5.2) X10^6/uL Hgb (12.0-16.0) g/dL Hct (36-46) % MCV (80-100) fL MCH (26-34) PG MCHC (30-36) % RDW (11.6-14.8) % Plt Count (150-400) X10^3/uL Neut % (Auto) (50-75) % Lymph % (Auto) (25-40) % [place] % (Auto) (3-14) % Eos % (Auto) (2-4) % Baso % (Auto) (0-2) % Neut # (Auto) (9613-3479) /uL Lymph # (Auto) (3099-5460) /uL [place] # (Auto) (0-900) /uL Eos # (Auto) (0-450) /uL Baso # (Auto) (0-100) /uL VBG pH (7.33-7.43) VBG pCO2 (45-50) mmHg VBG pO2 (35-45) mmHg VBG HCO3 (24-28) mmol/L VBG Total CO2 (24-29) mmol/L VBG O2 Saturation (70-75) % VBG Base Excess (0-4) mmol/L Sodium 139 (137-145) mmol/L Potassium 4.9 (3.4-5.1) mmol/L Chloride 111 H (98-107) mmol/L Carbon Dioxide 13 L (22-32) mmol/L BUN 32 H (7-17) mg/dL Creatinine 1.17 H (0.52-1.04) mg/dL Estimated GFR 52 L (>60) mL/min BUN/Creatinine Ratio 27.4 H (6-22) Glucose 479 H* D (70-99) mg/dL Lactate (0.7-2.1) mmol/L Calcium 9.0 (8.4-10.2) mg/dL Magnesium (1.6-2.3) mg/dL Total Bilirubin 0.4 (0.2-1.3) mg/dL AST 17 (14-36) IU/L ALT 18 (<35) IU/L Alkaline Phosphatase 76 (38-126) U/L Total Protein 5.8 L (6.3-8.2) g/dL Albumin 3.3 L (3.5-5.0) g/dL Globulin 2.5 (1.7-4.1) g/dL Albumin/Globulin Ratio 1.3 (1.0-2.8) Lipase (23-300) U/L SARS-CoV-2 (PCR) (Negative) Influenza A (RT-PCR) (NEGATIVE) Influenza B (RT-PCR) (NEGATIVE) RSV (PCR) (Negative) Point of Care Testing Glucose POC 378 Urine Dip Bedside Urine Glucose 1000 mg/dl Bedside Urine Bilirubin - Negative Bedside Urine Ketone +++ 80 Urine Specific [place] 1.020 Bedside Urine Occult Blood +/- Bedside Urine pH 6.0 Bedside Urine Protein - Negative Bedside Urine Urobilinogen - Negative Bedside Urine Nitrite - Negative Bedside Urine Leukocytes - Negative Esterase Point of care testing: Point of Care Testing Glucose POC 378 Urine Dip Bedside Urine Glucose 1000 mg/dl Bedside Urine Bilirubin - Negative Bedside Urine Ketone +++ 80 Urine Specific [place] 1.020 Bedside Urine Occult Blood +/- Bedside Urine pH 6.0 Bedside Urine Protein - Negative Bedside Urine Urobilinogen - Negative Bedside Urine Nitrite - Negative Bedside Urine Leukocytes - Negative Esterase MDM Narrative Medical decision making narrative: Patient is a 64-year-old female with a past medical history of insulin-dependent diabetes presenting from EMS from facility for evaluation of nausea and vomiting hyperglycemia, she states that she has been having some nausea and vomiting starting today, no complaints of headache visual disturbances chest pain shortness of breath abdominal pain or any other GI/ symptoms time. With mild leukocytosis of 11.1 more likely reactive secondary to nausea and vomiting, patient VBG 7.36, glucose was elevated at 378 initially, patient did receive 2 L of fluid and 10 units subcu insulin, patient with complete resolution of symptoms administration of medication here, she feels comfortable and wants to be discharged back to facility. Viral panel negative for COVID flu RSV return precautions given to the patient she verbalized understanding of this and agrees to being discharged home with outpatient follow up. Discharge Plan Departure Patient Disposition: Home Clinical Impression: Hyperglycemia, Nausea & vomiting Activity Restrictions/Additional Instructions: Please follow up with your primary care doctor Please read the discharge instructions sheet carefully and bring all papers to all doctor follow-up visits, as it may contain information that your doctor may want to see. Disease processes change and evolve, if your symptoms worsen or if you develop any new symptoms that are concerning to you please return for evaluation. Your evaluation today does not show any evidence of any life- threatening/serious illnesses requiring admission to the hospital or surgery. Please follow-up with your doctor for re-evaluation in approximately 1 day. Seek immediate medical attention for any worrisome symptoms. *If you do not have a primary care provider please contact the [facility] Resource line at [phone]. They will ask some questions about your medical history and help get you set up with a doctor in the community. Prescriptions: New ondansetron 4 mg tablet,disintegrating 4 mg PO Q8H PRN (Reason: nausea and vomiting) 7 Days Qty: 21 0RF No Action insulin lispro [Humalog U-100 Insulin] 100 unit/mL solution See Rx Instructions Continuous Subcutaneous Infusion SEE INSTRUCTIONS Qty: 90 1RF Dose Instruction: use as directed via insulin pump (80-100U daily) Continuous Subcutaneous Infusion SEE INSTRUCTIONS; Rx Instructions: use as directed via insulin pump (80-100U daily) Continuous Subcutaneous Infusion SEE INSTRUCTIONS; duloxetine [Cymbalta] 30 mg capsule,delayed release(DR/EC) 30 mg PO BID Qty: 180 3RF lisinopril 10 mg tablet 5 mg PO Q DAY Qty: 90 3RF Rx Instructions: Take 1/2 tab (5mg) daily for hypertension, goal 100-130/50-80 rosuvastatin [Crestor] 40 mg tablet 40 mg PO DAILY Qty: 90 3RF Rx Instructions: Take 1 tablet daily for elevated cholesterol. citalopram 20 mg tablet 20 mg PO DAILY gabapentin 300 mg capsule 300 mg PO DAILY insulin glargine-yfgn 100 unit/mL (3 mL) insulin pen 25 unit SUBCUT QAM Patient Comments: [NO ORIGINAL SIG] insulin glargine-yfgn 100 unit/mL (3 mL) insulin pen 20 unit SUBCUT QPM Patient Comments: [NO ORIGINAL SIG] pantoprazole 20 mg Tablet,Delayed Release (Dr/Ec) 20 mg PO BID 30 Days Qty: 60 0RF cephalexin 500 mg tablet 500 mg PO QID 7 Days Qty: 28 0RF doxycycline hyclate 100 mg tablet 100 mg PO BID 7 Days Qty: 14 0RF Stand Alone Forms: Patient Portal/API/Survey
[2025-01-24 20:24] LABS: Influenza A - CEPHEID Flu A NEGATIVE (NEGATIVE); Influenza B - CEPHEID Flu B NEGATIVE (NEGATIVE); Respiratory Syncytial Virus Negative (Negative)
[2025-01-24 20:25] LABS: COVID-19 CEPHEID 4-PLEX PCR Negative (Negative)
[2025-01-24] MEDS: INSULIN REGULAR 100 UNIT/ML 3 ML VIAL 10 UNIT SUBCUT (22:10)
[2025-01-24 23:09] LABS: Alanine Aminotransferase 18 IU/L (<35); Albumin 3.3 g/dL (3.5-5.0); Albumin Globulin Ratio 1.3 (1.0-2.8); Alkaline Phosphatase 76 U/L (38-126); Aspartate Aminotransferase 17 IU/L (14-36); BUN Creatinine Ratio 27.4 (6-22); Bilirubin Total 0.4 mg/dL (0.2-1.3); Blood Urea Nitrogen 32 mg/dL (7-17); Carbon Dioxide 13 mmol/L (22-32); Chloride 111 mmol/L (98-107); Estimated Glomerular Filt Rate 52 mL/min (>60); Globulin 2.5 g/dL (1.7-4.1); HEMOLYSIS < 15 (0-50); Potassium 4.9 mmol/L (3.4-5.1); Sodium 139 mmol/L (137-145); Total Protein 5.8 g/dL (6.3-8.2)
[2025-01-24 23:13] LABS: Glucose 479 mg/dL (70-99)
[2025-01-24 23:56] LABS: Bacteria Urine None Seen; Hyaline Casts Urine 0-1/LPF; RBC Urine 0-1/HPF (0-5/HPF); Urine Volume 10mL (spun); WBC Urine 0-1/HPF (0-5/HPF)
[2025-01-24 23:57] LABS: Squamous Epithelial Cell Urine 1-5 /HPF (0-5/HPF)
[2025-01-25] VITALS: PULSE 82; RESP 24; O2SAT 98
[2025-01-25 00:30] VITALS: PULSE 80; RESP 16; O2SAT 98
[2025-01-25 00:54] VITALS: BP 166/70; PULSE 79; RESP 21; O2SAT 98
== END 2025-01-25 01:13 | disposition home or self-care (01) ==
PROVIDERS: Emergency Provider Student in an Organized Health Care Education/Training Program
DX: E10.65 Type 1 diabetes mellitus with hyperglycemia (principal); R11.2 Nausea with vomiting, unspecified
CPT/HCPCS: 0241U; 36415; 80053; 81003; 81015; 82805; 82962; 83605; 83690; 83735; 85025; 96361; 96372; 96374; 99284; J2405

== ENCOUNTER → 2025-02-22 07:30 | Outpatient (ROUT) | payer MEDICARE, MEDICAID, SELFPAY ==
[2024-01-04 15:55] VITALS: PULSE 110; RESP 19; O2SAT 95
[2025-02-22 08:31] LABS: Hemoglobin A1C% w Est Avg Glu 7.6 % (4.0-6.0)
== END ==
PROVIDERS: Visit Provider Hospitalist
DX: E11.9 Type 2 diabetes mellitus without complications (principal)
CPT/HCPCS: 36415; 83036

== ENCOUNTER → 2025-05-24 08:15 | Outpatient (ROUT) | payer MEDICARE, MEDICAID, SELFPAY ==
[2024-01-04 15:55] VITALS: PULSE 110; RESP 19; O2SAT 95
[2025-05-24 08:27] LABS: Add Manual Diff / Slide Review NO; Hematocrit 37.1 % (36-46); Hemoglobin 12.2 g/dL (12.0-16.0); Lymphocytes Absolute Auto 3400 /uL (1100-4500); Mean Corpuscular HGB Conc 32.8 % (30-36); Mean Corpuscular Hemoglobin 28.2 PG (26-34); Mean Corpuscular Volume 85.8 fL (80-100); Platelet Count 285 X10^3/uL (150-400)
[2025-05-24 08:29] LABS: Hemoglobin A1C% w Est Avg Glu 8.4 % (4.0-6.0)
[2025-05-24 08:37] LABS: Alanine Aminotransferase 18 IU/L (<35); Albumin 3.9 g/dL (3.5-5.0); Albumin Globulin Ratio 1.2 (1.0-2.8); Alkaline Phosphatase 84 U/L (38-126); Blood Urea Nitrogen 27 mg/dL (7-17); Calcium 9.7 mg/dL (8.4-10.2); Carbon Dioxide 21 mmol/L (22-32); Chloride 108 mmol/L (98-107); Estimated Glomerular Filt Rate 58 mL/min (>60); Globulin 3.3 g/dL (1.7-4.1); Glucose 227 mg/dL (70-99); HEMOLYSIS 15 (0-50); Potassium 4.9 mmol/L (3.4-5.1); Sodium 137 mmol/L (137-145); Total Protein 7.2 g/dL (6.3-8.2)
== END ==
LOC: LAB 08:15
PROVIDERS: Visit Provider Family Medicine
DX: E10.49 Type 1 diabetes mellitus with other diabetic neurological complication (principal)
CPT/HCPCS: 36415; 80053; 83036; 85025